=== PATIENT | male | born 1955 | race Caucasian/White ===

== ENCOUNTER 2019-02-12 13:40 | Emergency (ER) | payer OTHER ==
[2019-02-12 14:36] LABS: BASOPHILS % (AUTO) 0.4 % (0.0-5.0); EOSINOPHILS % (AUTO) 0.6 % (0.0-8.0); HEMATOCRIT 45.4 % (42-54); MEAN CORPUSCULAR HEMOGLOBIN 31.3 pg (27.0-33.0); MEAN CORPUSCULAR HGB CONC 35.1 g/dL (32.0-36.0); MEAN CORPUSCULAR VOLUME 89.4 fL (79-99); MONOCYTES % (AUTO) 7.2 % (3.0-13.0); NEUTROPHILS % (AUTO) 72.8 % (40.0-77.0); NUCLEATED RED BLOOD CELLS 0.1 % (0.0-0.19); PLATELET COUNT (AUTO) 207 K/uL (130-400); RED BLOOD CELL COUNT(AUTO) 5.08 MIL/uL (4.50-6.20); RED CELL DISTRIBUTION WIDTH 13.8 % (11.0-15.5); WHITE BLOOD COUNT (AUTO) 11.7 K/uL (4.8-10.8)
[2019-02-12 14:48] LABS: CREATININE 0.6 mg/dL (0.5-1.5); POTASSIUM 3.8 mmol/L (3.5-5.1)
[2019-02-12 14:51] LABS: INR 1.01 (0.85-1.15); PARTIAL THROMBOPLASTIN TIME 24.6 SEC (26.3-35.5); PROTHROMBIN TIME 10.6 SEC (9.6-11.6)
[2019-02-12] MEDS ORDERED: KETOROLAC TROMETHAMINE 30MG/ML ONE (16:00)
[2019-02-12] MEDS ORDERED: DIAZEPAM 5 MG TABLET ONE (16:00)
== END 2019-02-12 17:11 | disposition home or self-care (01) ==
LOC: EDH 13:40
DX: S70.01XA Contusion of right hip, initial encounter (principal); F41.9 Anxiety disorder, unspecified; F32.9 Major depressive disorder, single episode, unspecified; F10.10 Alcohol abuse, uncomplicated; F19.10 Other psychoactive substance abuse, uncomplicated; Z79.899 Other long term (current) drug therapy; Z98.890 Other specified postprocedural states; W18.39XA Other fall on same level, initial encounter; Y93.89 Activity, other specified; Y92.098 Other place in other non-institutional residence as the place of occurrence of the external cause; Y99.8 Other external cause status
CPT/HCPCS: 36415; 70450; 74176; 80048; 84484; 85025; 85610; 85730; 93005; 96374; 99285; J1885

== ENCOUNTER 2019-03-11 10:25 | Inpatient (IN) | payer OTHER | END 2019-03-14 17:43 | disposition home or self-care (01) | LOC: EDH 10:25 → EDHIP 16:25 → 4BH 22:36 | DX: A41.50 Gram-negative sepsis, unspecified (principal); N39.0 Urinary tract infection, site not specified; K57.92 Diverticulitis of intestine, part unspecified, without perforation or abscess without bleeding; B96.4 Proteus (mirabilis) (morganii) as the cause of diseases classified elsewhere ==

== ENCOUNTER 2019-04-01 19:45 | Emergency (ER) | payer OTHER ==
[~2019-04-01 19:45] MED LIST: ALPR1TAB7 PO; HYDR-4068 PO
== END 2019-04-02 00:38 | disposition home or self-care (01) ==
LOC: EDH 19:45
DX: S70.01XA Contusion of right hip, initial encounter (principal); F41.9 Anxiety disorder, unspecified; F10.10 Alcohol abuse, uncomplicated; F14.10 Cocaine abuse, uncomplicated; F19.10 Other psychoactive substance abuse, uncomplicated; F32.9 Major depressive disorder, single episode, unspecified; Z60.9 Problem related to social environment, unspecified; Z87.891 Personal history of nicotine dependence; W01.0XXA Fall on same level from slipping, tripping and stumbling without subsequent striking against object, initial encounter; Y93.89 Activity, other specified; Y92.89 Other specified places as the place of occurrence of the external cause; Y99.8 Other external cause status
CPT/HCPCS: 73502

== ENCOUNTER 2019-06-15 22:29 | Inpatient (IN) | payer OTHER ==
[~2019-06-15] VITALS: Ht 170.2 cm; Wt 98.2 kg
[2019-06-15 23:07] LABS: BASOPHILS % (AUTO) 0.6 % (0.0-5.0); EOSINOPHILS % (AUTO) 0.5 % (0.0-8.0); HEMATOCRIT 44.9 % (42-54); LYMPHOCYTES % (AUTO) 15.7 % (21.0-51.0); MEAN CORPUSCULAR HEMOGLOBIN 30.8 pg (27.0-33.0); MEAN CORPUSCULAR HGB CONC 34.3 g/dL (32.0-36.0); MEAN CORPUSCULAR VOLUME 89.8 fL (79-99); MONOCYTES % (AUTO) 6.8 % (3.0-13.0); NEUTROPHILS % (AUTO) 76.4 % (40.0-77.0); NUCLEATED RED BLOOD CELLS 0.1 % (0.0-0.19); PLATELET COUNT (AUTO) 168 K/uL (130-400); WHITE BLOOD COUNT (AUTO) 10.5 K/uL (4.8-10.8)
[2019-06-15 23:16] LABS: INR 0.98 (0.85-1.15); PARTIAL THROMBOPLASTIN TIME 25.4 SEC (26.3-35.5); PROTHROMBIN TIME 10.3 SEC (9.6-11.6)
[2019-06-15 23:20] LABS: CARBON DIOXIDE 29 mmol/L (21-32); CHLORIDE 106 mmol/L (101-111); CREATININE 0.8 mg/dL (0.5-1.5); GLOMERULAR FILTR. RATE CALC 103 mL/min (>60); GLUCOSE,RANDOM 154 mg/dL (70-105); SODIUM SERUM 144 mmol/L (136-145); UREA NITROGEN, BLOOD 15 mg/dL (7-18)
[2019-06-15 23:23] LABS: ALANINE AMINOTRANSFERASE 25 U/L (12-78); ALBUMIN 3.2 g/dL (3.5-5.0); ALCOHOL, BLOOD < 3 mg/dL (0-10); AMYLASE 32 U/L (25-115); ASPARTATE AMINOTRANSFERASE 37 U/L (10-37); BILIRUBIN,TOTAL 0.4 mg/dL (0.2-1.0); CREATINE KINASE, TOTAL 20 U/L (21-232); LIPASE 71 U/L (114-286); TOTAL PROTEIN, SERUM 7.3 g/dL (6.0-8.3)
[2019-06-15 23:35] LABS: B-TYPE NATRIURETIC PEPTIDE 14 pg/mL (0-100)
[2019-06-16 00:41] LABS: BILIRUBIN,URINE Negative (NEGATIVE); COLOR,URINE Yellow (YELLOW); GLUCOSE, URINE (UA) Negative (NEGATIVE); KETONES,URINE Negative (NEGATIVE); LEUKOCYTE ESTERASE ,URINE Trace (NEGATIVE); NITRATE,URINE Negative (NEGATIVE); OCCULT BLOOD,URINE Large (NEGATIVE); PH,URINE 8.5 (5.0-8.0); PROTEIN,URINE Trace mg/dL (NEGATIVE)
[2019-06-16 00:47] LABS: APPEARANCE,URINE CLOUDY (CLEAR)
[2019-06-16 00:52] LABS: BACTERIA,URINE None Seen /HPF (None Seen); MUCUS,URINE Moderate LPF (None Seen); SQUAMOUS EPITHELIAL CELL,UR Few /HPF (0-2); WBC,URINE 0-1 /HPF (0-1)
[2019-06-16 00:54] LABS: AMORPHOUS SEDIMENT,UR Moderate /LPF (None Seen)
[2019-06-16] MEDS ORDERED: IPRATROPIUM/ALBUTEROL SULFATE 3 ML SOLUTION IH ONE (01:06)
[2019-06-16] MEDS ORDERED: LEVOFLOXACIN 500 MG/D5W 100 ML 100 ML ONE (01:07)
[2019-06-16 01:09] LABS: AMPHET/METH SCREEN,URINE NEGATIVE (NEGATIVE); BARBITURATE SCREEN, URINE NEGATIVE (NEGATIVE); BENZODIAZEPINES SCREEN,URINE POSITIVE (NEGATIVE); CANNABINOID SCREEN,URINE POSITIVE (NEGATIVE); COCAINE SCREEN,URINE POSITIVE (NEGATIVE); OPIATE SCREEN,URINE POSITIVE (NEGATIVE); PHENCYCLIDINE SCREEN,URINE NEGATIVE (NEGATIVE)
[2019-06-16 02:44] VITALS: BP 149/97
[2019-06-16] MEDS ORDERED: ONDANSETRON ODT 4 MG TAB PO PRN (04:30)
[2019-06-16] MEDS ORDERED: FLU VACC QS2019-20 36MOS UP/PF 60 MCG/0.5 ML ML IM ONE (05:00)
[2019-06-16] MEDS ORDERED: PNEUMOCOCCAL VACCINE POLYVALENT 0.5 ML/VIAL [PPV] IM ONE (05:00)
[2019-06-16 05:32] LABS: HEMATOCRIT 45.8 % (42-54); MEAN CORPUSCULAR HEMOGLOBIN 30.4 pg (27.0-33.0); MEAN CORPUSCULAR HGB CONC 33.7 g/dL (32.0-36.0); PLATELET COUNT (AUTO) 181 K/uL (130-400); RED BLOOD CELL COUNT(AUTO) 5.09 MIL/uL (4.50-6.20); RED CELL DISTRIBUTION WIDTH 13.8 % (11.0-15.5); WHITE BLOOD COUNT (AUTO) 11.1 K/uL (4.8-10.8)
[2019-06-16 05:41] LABS: CREATININE 0.8 mg/dL (0.5-1.5); POTASSIUM 4.1 mmol/L (3.5-5.1)
[2019-06-16 08:00] VITALS: BP 160/52
[2019-06-16] MEDS: FAMOTIDINE 20MG TAB 20 MG TAB PO SCH ×2 (10:23→23:05)
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
[2019-06-16] MEDS ORDERED: ALBUTEROL SULFATE 0.083% 2.5 MG/3 ML INH IH ONE (11:17)
[2019-06-16] MEDS ORDERED: IPRATROPIUM 0.5 MG/2.5 ML INH IH ONE (11:25)
[2019-06-16] MEDS: MORPHINE SULFATE 4 MG/1ML SYG IM PRN ×3 (12:37→23:07)
--- NOTE | 2019-06-16 15:45 | NUR ---
SUBSTANCE ABUSE Sw met with pt who admits to long hx of drug use. Pt states that he does smoke THC, "GOd made grass, man made alcohol. Who do you trust"; and takes hydrocodone and Xanax that is prescribed by Dr Coulter. Pt adamant that he has not done cocaine in a long time. Denies any recent use, but states the people that he stays with does. pt states he has been connected with AA for 35 years and knows how it works. Pt denies need for resources or referrals at this time.
[2019-06-16] MEDS: BUDESONIDE 0.5 MG/2 ML INH IH SCH (18:35)
[2019-06-16] MEDS: IPRATROPIUM 0.5 MG/2.5 ML INH IH SCH ×2 (18:35→23:46)
[2019-06-16] MEDS: ALBUTEROL SULFATE 0.083% 2.5 MG/3 ML INH IH SCH ×2 (18:35→23:46)
[2019-06-16 20:20] VITALS: BP 153/91
[2019-06-16] MEDS: INSULIN HUMULIN R 100 UNIT/ML 3ML SQ SCH (21:00)
[2019-06-16] MEDS: METHYLPREDNISOLONE SOD SUCC 40MG/ML 1ML IVP SCH (23:06)
[2019-06-16] MEDS: ALPRAZOLAM 1 MG TAB PO SCH (23:06)
[2019-06-16] MEDS: LEVOFLOXACIN 750 MG/D5W 150 ML 150 ML IV SCH (23:06)
[2019-06-16 23:34] VITALS: BP 138/92
[2019-06-17 04:08] VITALS: BP 157/97
[2019-06-17 04:54] LABS: BASOPHILS % (AUTO) 0.5 % (0.0-5.0); HEMATOCRIT 47.5 % (42-54); LYMPHOCYTES % (AUTO) 7.8 % (21.0-51.0); MEAN CORPUSCULAR HEMOGLOBIN 30.3 pg (27.0-33.0); MEAN CORPUSCULAR HGB CONC 33.5 g/dL (32.0-36.0); MEAN CORPUSCULAR VOLUME 90.4 fL (79-99); MONOCYTES % (AUTO) 0.8 % (3.0-13.0); NEUTROPHILS % (AUTO) 90.9 % (40.0-77.0); PLATELET COUNT (AUTO) 173 K/uL (130-400); RED BLOOD CELL COUNT(AUTO) 5.25 MIL/uL (4.50-6.20); RED CELL DISTRIBUTION WIDTH 13.9 % (11.0-15.5); WHITE BLOOD COUNT (AUTO) 9.7 K/uL (4.8-10.8)
[2019-06-17 05:26] LABS: ALANINE AMINOTRANSFERASE 25 U/L (12-78); ALBUMIN 3.4 g/dL (3.5-5.0); ASPARTATE AMINOTRANSFERASE 27 U/L (10-37); BILIRUBIN,TOTAL 0.7 mg/dL (0.2-1.0); CARBON DIOXIDE 24 mmol/L (21-32); CHLORIDE 103 mmol/L (101-111); CREATININE 0.8 mg/dL (0.5-1.5); GLOMERULAR FILTR. RATE CALC 103 mL/min (>60); GLUCOSE,RANDOM 214 mg/dL (70-105); POTASSIUM 4.2 mmol/L (3.5-5.1); SODIUM SERUM 139 mmol/L (136-145); TOTAL PROTEIN, SERUM 7.8 g/dL (6.0-8.3); UREA NITROGEN, BLOOD 12 mg/dL (7-18)
[2019-06-17] MEDS ORDERED: SODIUM CHLORIDE 3% FOR INHALATION 4 ML/AMP VIAL.NEB IH ONE (06:10)
[2019-06-17] MEDS: ALBUTEROL SULFATE 0.083% 2.5 MG/3 ML INH IH SCH ×4 (06:37→23:00)
[2019-06-17] MEDS: IPRATROPIUM 0.5 MG/2.5 ML INH IH SCH ×4 (06:37→23:00)
[2019-06-17] MEDS: BUDESONIDE 0.5 MG/2 ML INH IH SCH ×2 (06:37→16:38)
[2019-06-17] MEDS: INSULIN HUMULIN R 100 UNIT/ML 3ML SQ SCH ×3 (07:30→21:00)
[2019-06-17 08:00] VITALS: BP_SYST 147; BP_SYST 156; BP_DIAS 74; BP_DIAS 95
[2019-06-17 08:10] LABS: ABG BASE EXCESS -1.6 mmol/L (-2.0-3.0); ABG OXYGEN SATURATION 93.5 % (95.0-99.0); ABG PCO2 39 mmHg (35-48)
[2019-06-17] MEDS: METHYLPREDNISOLONE SOD SUCC 40MG/ML 1ML IVP SCH (09:58)
[2019-06-17] MEDS: FAMOTIDINE 20MG TAB 20 MG TAB PO SCH ×2 (09:59→22:24)
[2019-06-17 11:48] VITALS: BP 145/100
[2019-06-17] MEDS ORDERED: PRED20B PO (13:55)
[2019-06-17] MEDS ORDERED: BUDE0.5A3 IH (13:55)
[2019-06-17] MEDS ORDERED: IPRNEB IH (13:55)
[2019-06-17] MEDS ORDERED: ALBU2.5V2 IH (13:55)
[2019-06-17 16:20] VITALS: BP 156/96
--- NOTE | 2019-06-17 16:39 | NUR ---
CM CALL TO [facility] X2 TO GET ORDER FOR PT EVAL SNF REFERRAL NO ANSWER, FOUND REGULATORY ASSISTANT IN 2A, DSCUSSED PLAN OF CARE; STATES NEEDS RECORDS FROM DR. HAY. CM ADVISED THAT SHE WOULD PLACED ORDER FOR PT, SNF AND MED RECORDS, STATSU DISCUSSED, REGULATORY ASSISTANT STATES COULD CHANGE TO INP. ORDERS PLACED, EXCEPT STATUS CHANGE NOTES ORDER PLACED BY REGULATORY ASSISTANT FOR [facility]. WILL TALK TO PATIENT- [facility]ER[facility] OFFICE, REQUESTING LAST OFFICE VISIT TO FIND OUT PLAN FOR PATIENT. ON HOLD
--- NOTE | 2019-06-17 17:30 | NUR ---
SENT REFERRAL TO [facility], WILL EXPECT THIS PLACMENT TO REQUIRE MORE TIME
[2019-06-17] MEDS: MORPHINE SULFATE 4 MG/1ML SYG IM PRN (18:52)
[2019-06-17 20:50] VITALS: BP 156/70
[2019-06-17] MEDS: ALPRAZOLAM 1 MG TAB PO SCH (22:24)
[2019-06-17 23:19] VITALS: BP 138/92
[2019-06-18] MEDS: LEVOFLOXACIN 750 MG/D5W 150 ML 150 ML IV SCH (00:47)
[2019-06-18 03:26] VITALS: BP 151/100
[2019-06-18] MEDS: ALBUTEROL SULFATE 0.083% 2.5 MG/3 ML INH IH SCH (06:47)
[2019-06-18] MEDS: BUDESONIDE 0.5 MG/2 ML INH IH SCH ×2 (06:47→18:00)
[2019-06-18] MEDS: IPRATROPIUM 0.5 MG/2.5 ML INH IH SCH ×4 (06:47→23:29)
[2019-06-18] MEDS: INSULIN HUMULIN R 100 UNIT/ML 3ML SQ SCH ×4 (07:30→21:00)
[2019-06-18 08:00] VITALS: BP 153/88
[2019-06-18] MEDS ORDERED: PIPE3.379 IV (10:04)
[2019-06-18] MEDS: FAMOTIDINE 20MG TAB 20 MG TAB PO SCH ×2 (10:10→22:39)
[2019-06-18] MEDS: LISINOPRIL 10 MG TABLET PO SCH (10:11)
[2019-06-18] MEDS: PREDNISONE 20 MG TABLET PO SCH (10:11)
[2019-06-18] MEDS: MORPHINE SULFATE 4 MG/1ML SYG IM PRN (11:07)
--- NOTE | 2019-06-18 11:42 | NUR ---
PICC LINE FOR ABX [facility] [employer] PRODUCER MADE ROUNDS- STATES DR. GUY WANTS PT TO HAVE 10 DAYS OF ZOSYN AT FACILITY ORDER PLACED FOR PICC/PTINR
[2019-06-18 11:57] VITALS: BP_SYST 139; BP_SYST 157; BP_DIAS 106; BP_DIAS 112
--- NOTE | 2019-06-18 12:02 | NUR ---
CONSENT SIGNED FOR PICC LINE PLACEMENT.
[2019-06-18 12:06] LABS: INR 1.01 (0.85-1.15); PROTHROMBIN TIME 10.6 SEC (9.6-11.6)
[2019-06-18 16:00] VITALS: BP 147/98
--- NOTE | 2019-06-18 17:00 | NUR ---
DECLINED BY NICHOLAS, REFERRAL TO [facility] HERE TO SEE PT, SPOKE TO MR PAREDES ABOUT HTE CHANGE IN PLAN. NEW [facility] SENT, ORDER PLACE, WILL DO EMS FORMS IN AM Addendum: 06/18/19 at 1820 by MÓNICA DUNN RN Amended: Links added.
[2019-06-18] MEDS: ACETAMINOPHEN 325 MG TAB PO PRN (18:05)
[2019-06-18 20:00] VITALS: BP 161/108
[2019-06-18] MEDS: ALPRAZOLAM 1 MG TAB PO SCH (22:39)
[2019-06-19 00:03] VITALS: BP 180/99
[2019-06-19] MEDS: LEVOFLOXACIN 750 MG/D5W 150 ML 150 ML IV SCH (00:26)
[2019-06-19] MEDS: MORPHINE SULFATE 4 MG/1ML SYG IM PRN (01:55)
[2019-06-19 04:00] VITALS: BP 160/106
[2019-06-19 04:08] LABS: HEPATITIS A ANTIBODY IGM Negative (Negative); HEPATITIS B CORE IGM Negative (Negative); HEPATITIS Bs ANTIGEN SCREEN P Negative (Negative)
[2019-06-19] MEDS: ACETAMINOPHEN 325 MG TAB PO PRN (06:36)
[2019-06-19] MEDS: INSULIN HUMULIN R 100 UNIT/ML 3ML SQ SCH ×4 (06:39→21:00)
[2019-06-19] MEDS: IPRATROPIUM 0.5 MG/2.5 ML INH IH SCH ×4 (07:11→23:18)
[2019-06-19] MEDS: BUDESONIDE 0.5 MG/2 ML INH IH SCH ×2 (07:25→18:00)
[2019-06-19 08:00] VITALS: BP 158/115
[2019-06-19] MEDS: PREDNISONE 20 MG TABLET PO SCH (09:26)
[2019-06-19] MEDS: FAMOTIDINE 20MG TAB 20 MG TAB PO SCH ×2 (09:27→21:55)
[2019-06-19] MEDS: LISINOPRIL 10 MG TABLET PO SCH ×2 (09:27→12:27)
[2019-06-19 12:00] VITALS: BP 153/105
--- NOTE | 2019-06-19 15:18 | NUR ---
[facility] FOR INPT ORDERS
[2019-06-19 16:00] VITALS: BP 133/97
[2019-06-19] MEDS ORDERED: LISI-613 PO (16:08)
--- NOTE | 2019-06-19 17:15 | NUR ---
SUMMARY OF TODAY'S DISCHARGE CHALLENGES [facility] ADMIN UNWILLING TO TAKE PT 2/2 TO + DRUGS POSSIBLE NOT GOO DISPOSITION; ADMIN ADVISED [facility] JUST BEFORE 5 PM THAT PT WOULD BE ACCEPTED. AND AUTH WAS SUBMITTED. CALL TO [facility] AND RETURNED WITH ORDER REQUEST FOR INPT REQUEST OF DIRECTOR. EXPECT AUTH FROM [facility] TOMORROW. EMS FORM PENDING Addendum: 06/19/19 at 2018 by MÓNICA DUNN RN CM Amended: Links added.
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
[2019-06-19 20:00] VITALS: BP 147/89
[2019-06-19] MEDS: ALPRAZOLAM 1 MG TAB PO SCH (21:55)
[2019-06-20] VITALS: BP 123/79
[2019-06-20] MEDS: LEVOFLOXACIN 750 MG/D5W 150 ML 150 ML IV SCH (00:16)
[2019-06-20] MEDS: MORPHINE SULFATE 4 MG/1ML SYG IM PRN ×2 (03:09→19:06)
[2019-06-20 04:00] VITALS: BP 140/96
[2019-06-20] MEDS: INSULIN HUMULIN R 100 UNIT/ML 3ML SQ SCH ×4 (05:46→21:00)
[2019-06-20 06:11] LABS: CREATININE 0.7 mg/dL (0.5-1.5); POTASSIUM 3.8 mmol/L (3.5-5.1)
[2019-06-20] MEDS: IPRATROPIUM 0.5 MG/2.5 ML INH IH SCH ×4 (06:57→23:14)
[2019-06-20] MEDS: BUDESONIDE 0.5 MG/2 ML INH IH SCH ×2 (07:06→18:00)
[2019-06-20 08:00] VITALS: BP 150/99
[2019-06-20] MEDS: PREDNISONE 20 MG TABLET PO SCH (09:04)
[2019-06-20] MEDS: FAMOTIDINE 20MG TAB 20 MG TAB PO SCH ×2 (09:05→21:10)
[2019-06-20] MEDS: LISINOPRIL 20 MG TABLET PO SCH (09:06)
[2019-06-20] MEDS: ACETAMINOPHEN 325 MG TAB PO PRN (11:14)
[2019-06-20 11:55] VITALS: BP 132/82
[2019-06-20] MEDS: LISINOPRIL 10 MG TABLET PO SCH (12:15)
[2019-06-20 16:00] VITALS: BP 135/93
--- NOTE | 2019-06-20 16:00 | NUR ---
cm note spoke to brittni with [facility] and states they have submitted to insurance for snf, but pending insurance approval.
[2019-06-20 20:00] VITALS: BP 143/92
[2019-06-20] MEDS: ALPRAZOLAM 1 MG TAB PO SCH (21:11)
[2019-06-21] VITALS: BP 134/85
[2019-06-21] MEDS: LEVOFLOXACIN 750 MG/D5W 150 ML 150 ML IV SCH (00:44)
[2019-06-21] MEDS: MORPHINE SULFATE 4 MG/1ML SYG IM PRN ×2 (00:50→14:21)
[2019-06-21 04:00] VITALS: BP 135/83
[2019-06-21] MEDS: BUDESONIDE 0.5 MG/2 ML INH IH SCH (06:00)
[2019-06-21] MEDS: INSULIN HUMULIN R 100 UNIT/ML 3ML SQ SCH ×2 (07:30→11:30)
[2019-06-21 08:00] VITALS: BP 150/98
[2019-06-21] MEDS: FAMOTIDINE 20MG TAB 20 MG TAB PO SCH (09:04)
[2019-06-21] MEDS: LISINOPRIL 20 MG TABLET PO SCH (09:05)
[2019-06-21] MEDS: PREDNISONE 20 MG TABLET PO SCH (09:05)
[2019-06-21] MEDS: IPRATROPIUM 0.5 MG/2.5 ML INH IH SCH (11:11)
[2019-06-21 11:22] VITALS: BP 147/85
--- NOTE | 2019-06-21 12:00 | NUR ---
D/C PLAN CM spoke to Caryn with [facility]. States pt has insurance auth and can transfer today. CM notified nursing of acceptance. Addendum: 06/21/19 at 1446 by JOAQUIN ANNE CM Amended: Links added.
[2019-06-21] MEDS: LISINOPRIL 10 MG TABLET PO SCH (12:11)
--- NOTE | 2019-06-21 15:05 | NUR ---
EMS informed of transfer, pt will be sampler pickup at 1600. Maryjo director of career services nurse to follow up if EMS not here by 1600
[2019-06-21] MEDS ORDERED: PNEUMOCOCCAL VACCINE POLYVALENT 0.5 ML/VIAL [PPV] IM ONE (16:00)
[2019-06-21] MEDS ORDERED: FLU VACC QS2019-20 36MOS UP/PF 60 MCG/0.5 ML ML IM ONE (16:00)
--- NOTE | 2019-06-21 16:30 | NUR ---
PATIENT GIVEN DISCHARGE INSTRUCTIONS AND EDUCATION ON FOLLOW UP APPOINTMENTS WITH ORTHOPEDIC DR DHILLON AND IV ANTIBIOTICS PRESCRIBED FOR HIS PNEUMONIA. PATIENT VERBALIZED UNDERSTANDING OF ALL EDUCATION GIVEN VIA TEACH BACK. NO CONCERNS VOICED. REPORT CALLED TO LEA AYALA AT [facility]. ALL QUESTIONS ANSWERED ACCORDINGLY. NO DISTRESS NOTED UPON DISCHARGE. EMS HERE TO TRANSFER PATIENT.
== END 2019-06-21 16:35 | DRG 190 ==
LOC: EDH 22:29 → OBSVTOIN 06-16 01:10 → EDHIP 06-16 01:10 → 3DH 06-16 02:36
PROVIDERS: ADMIT Internal Medicine Critical Care Medicine; ATTEND Internal Medicine Critical Care Medicine
PROC: 02HV33Z Insertion of Infusion Device into Superior Vena Cava, Percutaneous Approach (ICD-10-PCS; principal; 2019-06-18)
PROC: 3E02340 Introduction of Influenza Vaccine into Muscle, Percutaneous Approach (ICD-10-PCS; 2019-06-21)
PROC: 3E0234Z Introduction of Serum, Toxoid and Vaccine into Muscle, Percutaneous Approach (ICD-10-PCS; 2019-06-21)
DX: J44.0 Chronic obstructive pulmonary disease with (acute) lower respiratory infection (principal); J18.9 Pneumonia, unspecified organism; J44.1 Chronic obstructive pulmonary disease with (acute) exacerbation; B19.20 Unspecified viral hepatitis C without hepatic coma; J84.10 Pulmonary fibrosis, unspecified; F41.9 Anxiety disorder, unspecified; F19.10 Other psychoactive substance abuse, uncomplicated; Z23 Encounter for immunization
CPT/HCPCS: 36415; 36600; 71045; 73502; 80048; 80053; 80074; 80305; 81001; 82150; 82550; 82803; 82948; 83605; 83690; 83735; 83880; 84145; 84484; 85025; 85027; 85610; 85730; 86701; 87040; 87071; 87205; 87390; 90732; 93005; 94640; 94664; 97039; C1894; G0008; G0009; G0378; G0480; J1815; J1956; J2270; J2920

== ENCOUNTER 2020-01-20 10:52 | Emergency (ER) | payer OTHER ==
[~2020-01-20 10:52] MED LIST changes: -ALPR1TAB7 PO; -HYDR-4068 PO; +LISI-613 PO
[2020-01-20 13:10] LABS: BASOPHILS % (AUTO) 0.3 % (0.0-5.0); EOSINOPHILS % (AUTO) 1.8 % (0.0-8.0); LYMPHOCYTES % (AUTO) 34.7 % (21.0-51.0); MEAN CORPUSCULAR HEMOGLOBIN 25.5 pg (27.0-33.0); MEAN CORPUSCULAR HGB CONC 31.1 g/dL (32.0-36.0); NEUTROPHILS % (AUTO) 54.9 % (40.0-77.0); PLATELET COUNT (AUTO) 181 K/uL (130-400); RED BLOOD CELL COUNT(AUTO) 5.61 MIL/uL (4.50-6.20); RED CELL DISTRIBUTION WIDTH 15.9 % (11.0-15.5); WHITE BLOOD COUNT (AUTO) 6.3 K/uL (4.8-10.8)
[2020-01-20 13:26] LABS: CREATININE 0.7 mg/dL (0.5-1.5); POTASSIUM 3.9 mmol/L (3.5-5.1)
[2020-01-20 13:33] LABS: ALBUMIN 3.7 g/dL (3.5-5.0); BILIRUBIN,TOTAL 0.8 mg/dL (0.2-1.0)
[2020-01-20 14:36] LABS: ERYTHROCYTE SEDIMENTATION RATE 2 MM/HR (0-20)
[2020-01-20] MEDS ORDERED: LIDOCAINE 5% TOPICAL PATCH TP ONE (15:21)
== END 2020-01-20 20:18 | disposition home or self-care (01) ==
LOC: EDH 10:52
DX: M13.851 Other specified arthritis, right hip (principal); M25.551 Pain in right hip; B37.89 Other sites of candidiasis; F41.9 Anxiety disorder, unspecified; F32.9 Major depressive disorder, single episode, unspecified
CPT/HCPCS: 36415; 73502; 80053; 85025; 85651

== ENCOUNTER 2022-06-27 15:54 | Emergency (ER) | payer OTHER ==
[~2022-06-27 15:54] MED LIST changes: -LISI-613 PO; +LISI20TA24 PO
[2022-06-27 16:01] VITALS: BP 108/65
[2022-06-27 16:19] LABS: APPEARANCE,URINE CLOUDY (CLEAR); BILIRUBIN,URINE NEGATIVE (NEGATIVE); COLOR,URINE YELLOW (YELLOW); GLUCOSE, URINE (UA) NEGATIVE (NEGATIVE); KETONES,URINE 5 mg/dL (NEGATIVE); LEUKOCYTE ESTERASE ,URINE 500 Leu/uL (NEGATIVE); NITRATE,URINE 1+ (NEGATIVE); OCCULT BLOOD,URINE NEGATIVE (NEGATIVE); PROTEIN,URINE 30 mg/dL (NEGATIVE); UROBILINOGEN,URINE 3 mg/dL (0.2-1.0)
[2022-06-27] MEDS ORDERED: DOXYCYCLINE HYCLATE 100 MG TABLET PO SCH (16:30)
[2022-06-27] MEDS ORDERED: IBUPROFEN 800 MG TAB PO ONE (16:30)
[2022-06-27 16:42] LABS: BACTERIA,URINE MOD /HPF (None Seen); MUCUS,URINE MANY LPF (None Seen); SQUAMOUS EPITHELIAL CELL,UR FEW /HPF (0-2); TRANSITIONAL EPI CELLS,URINE FEW /HPF (None Seen); WBC,URINE TNTC /HPF (0-1)
[2022-06-27] MEDS ORDERED: DOXY100C5 PO (16:55)
[2022-06-27] MEDS ORDERED: NAPR-1180 PO (16:55)
[2022-06-27] MEDS ORDERED: CEFU500T67 PO (16:55)
[2022-06-27] MEDS ORDERED: CEFTRIAXONE 1G VIAL IM ONE (17:00)
== END 2022-06-27 17:11 | disposition home or self-care (01) ==
LOC: EDH 15:54
DX: N39.0 Urinary tract infection, site not specified (principal); N45.1 Epididymitis; E11.9 Type 2 diabetes mellitus without complications; J44.9 Chronic obstructive pulmonary disease, unspecified; Z79.1 Long term (current) use of non-steroidal anti-inflammatories (NSAID); Z86.73 Personal history of transient ischemic attack (TIA), and cerebral infarction without residual deficits
CPT/HCPCS: 99284; 87077; 87088; 87186; 81001; 76870; 96372; J0696

== ENCOUNTER → 2025-01-16 | Outpatient (CLI) | payer OTHER ==
[~2025-01-16] MED LIST changes: +APIX2.5T PO; +ASPI-1197 PO; +ATOR10 PO; +BUME1TAB7 PO; +CYCL5TAB3 PO; +DOCU100C33 PO; +HYDR-4060 PO; +LACT10SO85 PO; -LISI20TA24 PO; +LOSA100T59 PO; +POLY17PO4 PO; +SODI100037 PO; +TERA5CAP4 PO
--- NOTE | 2025-01-16 08:55 | NUR ---
RE: PARACENTESIS IMAGES TAKEN AND REVIEWED BY DR Sophia CLEMONS. NOT ENOUGH FLUID SEEN FOR PROCEDURE TO BE DONE SAFELY. PROCEDURE CANCELLED. PROCEDURE OUTCOME REPORTED PATIENT AND VERBALIZED UNDERSTANDING
--- NOTE | 2025-01-16 09:14 | HMCIMG ---
Ascites SCAN History: Abdominal distention FINDINGS: There is a minimal amount of ascitic fluid. It is not enough for ultrasound-guided paracentesis. IMPRESSION: Minimal ascites, not enough for ultrasound-guided paracentesis.
== END | disposition home or self-care (01) ==
LOC: RAH 08:26
PROVIDERS: ATTEND Hospitalist
DX: K74.60 Unspecified cirrhosis of liver (principal)
CPT/HCPCS: 76705

== ENCOUNTER → 2025-01-27 | Outpatient (CLI) | payer OTHER ==
--- NOTE | 2025-01-27 08:54 | NUR ---
U/S GD PARACENTESIS NOT DONE U/S PERFORMED BY Aiden SHAH RDMS. IMAGES REVIEWED BY DR Sophia CLEMONS. NOT ENOUGH FLUID TO SAFELY PERFORM PROCEDURE. PT INFORMED. DISCHARGE VIA EMS STRETCHER
== END | disposition home or self-care (01) ==
LOC: RAH 08:15
PROVIDERS: ATTEND Hospitalist
DX: K74.69 Other cirrhosis of liver (principal); R18.8 Other ascites
CPT/HCPCS: 76705

== ENCOUNTER 2025-02-20 07:43 | Inpatient (IN) | payer OTHER ==
[~2025-02-20] VITALS: Ht 182.9 cm; Wt 108.9 kg
[2025-02-20] VITALS (50 sets, daily range): BP systolic 78–157; BP diastolic 39–87; PULSE 85–123; RESP 16–35; TEMP 97.8–98.7; O2SAT 97–100
[~2025-02-20 07:43] MED LIST changes: +LEVO750T68 PO
[2025-02-20] MEDS ORDERED: ALBUMIN (HUMAN) 25% 50 ML IV SCH (08:00)
[2025-02-20] MEDS: ALBUMIN (HUMAN) 25% 50 ML IV ONE (08:05)
[2025-02-20] MEDS: 0.9%NACL 1000ML 2,721 ML IV ONE (08:12)
[2025-02-20 08:15] LABS: ABG BASE EXCESS -0.6 mmol/L (-2.0-3.0); ABG HCO3 21.3 mmol/L (21.0-28.0); ABG OXYGEN SATURATION 95.3 % (94.0-98.0); ABG PCO2 29 mmHg (35-48); ABG PH 7.492 (7.350-7.450); PO2, ARTERIAL BG 68.6 mmHg (83.0-108.0); TEMPERATURE, CELSIUS BG 37.0 CELSIUS (35.5-37.0); VENT MODE, BG RA (ROOM AIR)
[2025-02-20 08:22] LABS: CREATININE 2.2 mg/dL (0.5-1.3); GLOMERULAR FILTR. RATE CALC 31.0 mL/min (>90); GLUCOSE,RANDOM 151.0 mg/dL (70-105); SODIUM SERUM 135.0 mmol/L (136-145); UREA NITROGEN, BLOOD 21.0 mg/dL (7-18)
[2025-02-20 08:26] LABS: ASPARTATE AMINOTRANSFERASE 73.0 U/L (10-37); CREATINE KINASE, TOTAL 85.0 U/L (21-232); TOTAL PROTEIN, SERUM 5.4 g/dL (6.0-8.3)
[2025-02-20 08:30] LABS: IMMATURE GRANULOCYTE ABSOLUTE 0.06 K/uL (0-1); NUCLEATED RED BLOOD CELLS 0.0 % (0.0-0.19); PLATELET COUNT (AUTO) 97 K/uL (130-400); RED BLOOD CELL COUNT(AUTO) 2.30 MIL/uL (4.50-6.20); RED CELL DISTRIBUTION WIDTH 17.6 % (11.0-15.5); WHITE BLOOD COUNT (AUTO) 8.7 K/uL (4.8-10.8)
--- NOTE | 2025-02-20 08:52 | EKG ---
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
[2025-02-20] MEDS: NOREPINEPHRIN 4MG/NS 250ML 250 ML IV SCH (09:25)
[2025-02-20 09:36] LABS: APPEARANCE,URINE TURBID (CLEAR); GLUCOSE, URINE (UA) 50 mg/dL (NEGATIVE); LEUKOCYTE ESTERASE ,URINE 500 Leu/uL (NEGATIVE); NITRATE,URINE NEGATIVE (NEGATIVE); OCCULT BLOOD,URINE LARGE (NEGATIVE)
[2025-02-20 09:39] LABS: ADD UA MICROSCOPIC YES
[2025-02-20 09:51] LABS: NON-SQUAMOUS EPITHELIAL CELL 2 /HPF (0-2); SQUAMOUS EPITHELIAL CELL,UR FEW /HPF (0-2); YEAST,URINE HYPHAE RARE /HPF (None Seen)
--- NOTE | 2025-02-20 10:03 | ERN ---
General Chief Complaint: Hypotension Stated Complaint: HYPOTENSION Time Seen by MD: 07:44 History of Present Illness Initial Comments 69-year-old male, multiple medical comorbidities including senior living resident, pulmonary fibrosis, liver disease, brought in by EMS from [facility] for hypotension. Patient was found to have a blood pressure in the 50s systolic by senior living staff today. EMS found the blood pressure 60/30. Patient received 500 cc of normal saline by EMS prior to arrival. Patient denies any complaints at this time. He has a distended abdomen. Chronic Yap catheter in place. He denies any respiratory distress or chest pain. He denies any nausea or vomiting or diarrhea. Allergies: Coded Allergies: No Known Allergies (Unverified Allergy, Unknown, 02/12/19) Home Meds Active Scripts Levofloxacin (Levaquin 750Mg Tabs) 750 Mg Tablet, 1 TAB PO DAILY for 7 Days, #7 TAB 0 Refills Prov:MACIEL GARZA 02/17/25 Hydrocodone/Acetaminophen (Hydrocodon-Acetaminophen 5-325) 5 Mg-325 Mg Tablet, 1 EACH PO Q4HPRN PRN for PAIN for 7 Days, #42 TAB 0 Refills Prov:FREDERICK ANDRADE MD 12/18/24 Reported Medications Cyclobenzaprine HCl (Cyclobenzaprine HCl) 5 Mg Tablet, 1 TAB PO TIDP PRN for muscle spasms for 10 Days, #30 TAB 0 Refills 12/31/24 Aspirin (Aspirin) 81 Mg Tab.chew, 81 MG PO HS, TAB.CHEW 12/31/24 Bumetanide (Bumex) 1 Mg Tab, 2 MG PO AM, TAB 12/31/24 Polyethylene Glycol 3350 (Miralax) 17 Gram Powd.pack, 1 PACKET PO DAILY for constipation for 2 Days, #2 PACKET 0 Refills dissolve in water 12/31/24 Docusate Sodium (Docusate Sodium) 100 Mg Capsule, 1 CAP PO BID for constipation for 7 Days, #14 CAP 0 Refills 12/31/24 Sodium Chloride (Sodium Chloride) 1,000 Mg Tab, 1 TAB PO BID for 30 Days, #60 TAB 0 Refills 12/31/24 Lactulose (Lactulose) 10 Gram/15 Ml Solution, 30 ML PO BID for constipation, #500 ML 0 Refills 12/31/24 Apixaban (Eliquis) 2.5 Mg Tablet, 2.5 MG PO BID, TAB 12/31/24 Terazosin HCl (Terazosin HCl) 5 Mg Capsule, 1 CAP PO HS for 30 Days, #30 CAP 0 Refills 12/12/24 Losartan Potassium (Losartan Potassium) 100 Mg Tablet, 1 TAB PO DAILY for 30 Days, #30 TAB 0 Refills 12/12/24 Atorvastatin Calcium (LIPITOR) 10 Mg Tab, 1 TAB PO HS for 30 Days, #30 TAB 0 Refills 12/12/24 Past Medical History Past Medical History: CVA, Diabetes-Type II, Hepatitis, Other Medical History Other: PULMONARY FIBROSIS, HEPATITIS C, THOMBOCYTOPENIA Past Surgical History: None Surgical History Other: BACK Family History Family History: Negative Social History Social History: Lives with family ROS Dictation CONSTITUTIONAL: Fatigue HEAD/FACE: No signs of trauma. EENT: No eye pain, no blurred vision, no tearing, no double vision, no ear pain, no ear discharge, no nose pain, no nasal congestion, no throat pain, no throat swelling, no mouth pain. RESPIRATORY: No cough, no orthopnea, no SOB, no stridor, no wheezing. CARDIOVASCULAR: No chest pain, no edema, no palpitations, no syncope. GASTROINTESTINAL/ABDOMINAL: No abdominal pain, no constipation, no diarrhea, no nausea, no vomiting. GENITOURINARY: No abnormal discharge, no dysuria, no frequent urination, no hematuria. No complaints of pain in the genitals. MUSCULOSKELETAL: No back pain, no gout, no joint pain, no joint swelling, no muscle pain, no muscle stiffness, no neck pain. INTEGUMENTARY: No change in color, no change in hair/nails, no dryness, no lesion, no lumps, no rash. NEUROLOGICAL/PSYCH: No anxiety, not depressed, no emotional problem, no headache, no numbness, no pre-existing deficit, no history of seizures, no tremors, no weakness. HEMATOLOGIC/LYMPHATIC: Not anemic, no history of blood clots, no apparent bleeding, no bruising, glands not swollen. All Systems Negative, Except as Noted. Physical Exam Physical Exam Dictation VITAL SIGNS: Reviewed. GENERAL APPEARANCE: Alert, oriented x3, moderate distress, frail HEAD AND FACE: Non-traumatic. OROPHARYNX: Mouth normal, teeth no caries, tongue pink. Pharynx clear, no erythema. Tonsils no exudates, no abscesses noted. Dry mucous membranes NECK: Supple, non-tender, no thyromegaly, no masses, no JVD, no bruits. BREAST: Deferred. CHEST: No tenderness, no crepitus, no paradoxical movement, no retractions. LUNGS: Bilateral rhonchus, no wheezing HEART: Regular rate, regular rhythm, no murmur, no gallops. VASCULAR: No peripheral edema. ABDOMEN: Abdominal distention consistent with the ascites RECTAL: Deferred. GENITAL: Deferred. NEUROLOGICAL: Normal speech, gross motor function intact, gross sensory functio n intact. MUSCULOSKELETAL: Neck nontender, full range of motion, back nontender, full range of motion. 1+ pitting edema bilateral legs EXTREMITIES: Nontender, full range of motion. SKIN: Pale LYMPHATICS: Deferred. Results Laboratory and Microbiology Lab and Micro Result Laboratory Tests Test 02/20/25 08:00 02/20/25 08:13 02/20/25 08:20 02/20/25 08:21 White Blood Count 8.7 K/uL (4.8-10.8) Red Blood Count 2.30 MIL/uL (4.50-6.20) L Hemoglobin 7.6 g/dL (14.0-18.0) L Hematocrit 23.6 % (42-54) L Mean Corpuscular Volume 102.6 fL (79-99) H Mean Corpuscular Hemoglobin 33.0 pg (27.0-33.0) Mean Corpuscular Hemoglobin Concent 32.2 g/dL (32.0-36.0) Red Cell Distribution Width 17.6 % (11.0-15.5) H Platelet Count 97 K/uL (130-400) L Mean Platelet Volume 10.2 fL (7.5-10.5) Immature Granulocyte % (Auto) 0.7 % (0-1) Neutrophils (%) (Auto) 73.9 % (40.0-77.0) Lymphocytes (%) (Auto) 15.8 % (21.0-51.0) L Monocytes (%) (Auto) 8.9 % (3.0-13.0) Eosinophils (%) (Auto) 0.5 % (0.0-8.0) Basophils (%) (Auto) 0.2 % (0.0-5.0) Neutrophils # (Auto) 6.5 K/uL (1.8-7.7) Lymphocytes # (Auto) 1.4 K/uL (1.0-4.8) Monocytes # (Auto) 0.8 K/uL (0.1-1.0) Eosinophils # (Auto) 0.04 K/uL (0.00-0.70) Basophils # (Auto) 0.02 K/uL (0.00-0.20) Absolute Immature Granulocyte (auto 0.06 K/uL (0-1) Nucleated Red Blood Cells 0.0 % (0.0-0.19) Sodium Level 135 mmol/L (136-145) L Potassium Level 4.4 mmol/L (3.5-5.1) Chloride Level 101 mmol/L (101-111) Carbon Dioxide Level 26 mmol/L (21-32) Blood Urea Nitrogen 21 mg/dL (7-18) H Creatinine 2.2 mg/dL (0.5-1.3) H Glomerular Filtration Rate Calc 31 mL/min (>90) Random Glucose 151 mg/dL (70-105) H Lactic Acid Level 4.3 mmol/L (0.8-2.5) H Total Calcium 7.4 mg/dL (8.5-10.1) L Total Bilirubin 1.9 mg/dL (0.2-1.0) H Direct Bilirubin 1.0 mg/dL (0.0-0.3) H Aspartate Amino Transf (AST/SGOT) 73 U/L (10-37) H Alanine Aminotransferase (ALT/SGPT) 21 U/L (12-78) Alkaline Phosphatase 102 U/L (50-136) Total Creatine Kinase 85 U/L (21-232) Troponin I High Sensitivity 14 ng/L (4-75) Total Protein 5.4 g/dL (6.0-8.3) L Albumin 1.7 g/dL (3.5-5.0) L Lipase 53 U/L (16-77) Blood Gas Specimen Type Arterial Arterial Blood pH 7.492 (7.350-7.450) Arterial Blood Partial Pressure CO2 29 mmHg (35-48) L Arterial Blood Partial Pressure O2 68.6 mmHg (83.0-108.0) L Arterial Blood HCO3 21.3 mmol/L (21.0-28.0) Arterial Blood Oxygen Saturation 95.3 % (94.0-98.0) Arterial Blood Base Excess -0.6 mmol/L (-2.0-3.0) Blood Gas Temperature 37.0 CELSIUS (35.5-37.0) Blood Gas Vent Mode RA (ROOM AIR) FiO2 21.0 % Blood Gas Specimen Comment LR. B-Type Natriuretic Peptide 33 pg/mL (0-100) Urine Color DARK-ORANGE (YELLOW) Urine Appearance TURBID (CLEAR) Urine pH 5.0 (5.0-8.0) Urine Specific [place] 1.028 (1.001-1.031) Urine Protein 70 mg/dL (NEGATIVE) H Urine Glucose (UA) 50 mg/dL (NEGATIVE) H Urine Ketones NEGATIVE mg/dL (NEGATIVE) Urine Occult Blood LARGE (NEGATIVE) H Urine Nitrate NEGATIVE (NEGATIVE) Urine Bilirubin 0.5 mg/dL (NEGATIVE) H Urine Urobilinogen 3 mg/dL (0.2-1.0) H Urine Leukocyte Esterase 500 Lu/uL (NEGATIVE) H Urine RBC TNTC /HPF (0-1) H Urine WBC TNTC /HPF (0-1) H Urine Squamous Epithelial Cells FEW /HPF (0-2) Urine Non-Squamous Epithelial Cells 2 /HPF (0-2) Urine Bacteria RARE /HPF (None Seen) Urine Hyaline Casts 11-25 /LPF (0-1 /LPF) H Urine Yeast with Hyphae RARE /HPF (None Seen) MDM CC: Hypotension Historian: Patient Comorbidities: Pulmonary fibrosis, diabetes, HIV, hepatitis-C with liver failure, senior living resident Limitations by social determinants of health: None Differential diagnosis: Sepsis, cardiogenic shock, dehydration, hypovolemia, anemia, other Vital signs: Initial blood pressure 71/32, borderline tachycardic pulse 96, afebrile. Oxygen saturation stable at the time, but ABG showed low PaO2 is a placed on 2 L nasal cannula. Blood pressure improved with treatment. EKG (independently interpreted by me): NSR, rate 91, normal axis, early RWP. No STEMI. Low voltage. External chart review: Patient was discharged from this facility on 02/18/2025, discharge note by Dr. Riggs reviewed. Patient was admitted at that time for aspiration pneumonia community-acquired pneumonia, liver cirrhosis with a MELD score of 11, functional decline, edema, urinary retention with a Yap catheter placed. He was discharged to nursing facility. On clinical exam, patient has coarse breath sounds with rhonchi. He has a distended abdomen with tense ascites. He has a Yap catheter with dark urine placed. ENT exam shows dry mucous membranes but is otherwise unremarkable. He has pitting edema to the legs 1+. Labs (independently ordered and interpreted by me): No leukocytosis to be CBC 8.7 no shift. Macrocytic anemia hemoglobin 7.6. Thrombocytopenia 97. ABG 7.4 /29/68/21. Chemistry shows stable electrolytes, creatinine 2.2 BUN at 21 KARIME based on previous labs. Lactic acid 4.3. Liver enzymes all mildly elevated. Troponin stable CK stable. Low total protein and albumin. Urinalysis shows large occult blood, leuk esterase. CXR (independently interpreted by me): Some rotation to the x-ray no obvious cardiomegaly or pleural effusions or focal infiltrates. Initially patient hypotensive, concern for sepsis versus shock. Clearly liver failure on clinical exam. Started on IV fluids and albumin. No clear source of infection although the patient does have a chronic Yap catheter and also has a distended abdomen and coarse breath sounds. Possibly a pneumonia versus SBP versus UTI. Treatment in ED: 30 cc/kg fluid bolus, 25 g albumin, 2 g Rocephin. Norepinephrine drip. On sepsis focused re-evaluation after IV fluids, patient remains hypotensive. Septic shock. Norepinephrine started. Consultation: hospitalist (Robert) for admission to ICU ED Course Orders Procedure Category Date Status Time Cbc With Differential LAB 02/20/25 Complete 07:54 Blood Cult ALVIN 02/20/25 In Process 07:54 Urinalysis Profile LAB 02/20/25 Complete 07:54 Culture Urine ALVIN 02/20/25 In Process 07:54 0.9%Nacl 1000ml (Ns PHA 02/20/25 In Process 1000ml) 08:00 Creatine Kinase, Total LAB 02/20/25 Complete 07:54 Troponin I High LAB 02/20/25 Complete Sensitivity 07:54 Lactic Acid LAB 02/20/25 Complete 07:54 Basic Metabolic Panel LAB 02/20/25 Complete 07:54 Hepatic Function Panel LAB 02/20/25 Complete 07:54 Chest 1vw RAD 02/20/25 Taken 07:54 Lipase LAB 02/20/25 Complete 07:54 Arterial Blood Gas RT 02/20/25 Transmitted 07:54 Albumin (Human) 25% PHA 02/20/25 Complete (Albumin (Human) 25% 08:00 Ceftriaxone 2gm Vial PHA 02/20/25 Complete (Rocephin 2gm Inj) 08:30 Albumin (Human) 25% PHA 02/20/25 Complete (Albumin (Human) 25% 08:30 12 Lead Ekg Tracing- EKG 02/20/25 Complete Technical 08:03 Arterial Blood Gas LAB 02/20/25 Complete 08:13 B-Type Natriuretic LAB 02/20/25 Complete Peptide 08:17 Nurse Driven Yap LAUREN 02/20/25 In Process Removal Pro 08:28 *Nursing CPOE 02/20/25 Transmitted Communication: 08:28 Norepinephrin 4mg/Ns PHA 02/20/25 In Process 250ml (Levophed 4mg 09:30 Current Medications Medications (Trade) Dose Ordered Sig/[place] Route PRN Reason Start Time Stop Time Status Last Admin Dose Admin Albumin Human 50 ml @ 0 mls/hr AD IV 02/20/25 08:00 02/20/25 08:03 DC Albumin Human 50 ml @ 0 mls/hr AD ONCE IV 02/20/25 08:30 02/20/25 08:31 DC 02/20/25 08:05 Ceftriaxone Sodium (Rocephin 2gm Inj) 2 gm ONCE ONCE IVPB 02/20/25 08:30 02/20/25 08:31 DC 02/20/25 08:05 Norepinephrine 250 ml @ 0 mls/hr PROTOCOL IV 02/20/25 09:30 03/22/25 09:29 02/20/25 09:25 Sodium Chloride 2,721 ml @ 907 mls/hr ONCE ONCE IV 02/20/25 08:00 02/20/25 10:59 02/20/25 08:12 Vital Signs Date Time Temp Pulse Resp B/P (MAP) Pulse Ox O2 Delivery O2 Flow Rate FiO2 02/20/25 09:25 73/32 02/20/25 09:07 97 14 73/35 99 Nasal Cannula* 2 28 02/20/25 08:31 88 14 89/33 100 Nasal Cannula* 2 28 02/20/25 08:00 97.7 91 14 71/32 100 Room Air* 0 21 6/20/25 07:44 97.7 96 18 71/32 97 Room Air 0 DX & DISP Disposition: Inpatient Departure Impression: Primary Impression: Septic shock Additional Impressions: Dehydration, Thrombocytopenia, Macrocytic anemia, Ascites, Urinary tract infection, Yap catheter in place on admission, KARIME (acute kidney injury), Hypoalbuminemia, Lactic acidemia Critical Time: 30 minutes (Critical Care Procedure NoteAuthorized and Performed by: meTotal critical care time: Approximately 36 minutesDue to a high probability of clinically significant, life threatening deterioration, the patient required my highest level of preparedness to intervene emergently and I personally spent this critical care time directly and personally managing the patient. This critical care time included obtaining a history; examining the pat ient; pulse oximetry; ordering and review of studies; arranging urgent treatment with development of a management plan; evaluation of patient's response to treatment; frequent reassessment; and, discussions with other providers.This critical care time was performed to assess and manage the high probability of imminent, life-threatening deterioration that could result in multi-organ failure. It was exclusive of separately billable procedures and treating other patients and teaching time.Please see MDM section and the rest of the note for further information on patient assessment and treatment.) Condition: Stable Referrals: SELF,REFERRAL (PCP) ANGELY LOPEZ DO Feb 20, 2025 10:03
--- NOTE | 2025-02-20 10:24 | HMCIMG ---
CHEST 1VW HISTORY: Sepsis COMPARISON: 02/13/2025 FINDINGS: A frontal projection of the chest was obtained. No acute pulmonary infiltrates is seen. The heart is borderline enlarged. Degenerative changes are seen. Prominent interstitial markings are seen No evidence of aortic calcification is seen. IMPRESSION: 1. No acute pulmonary infiltrate is seen.
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
[2025-02-20] MEDS ORDERED: [UNRECOGNIZED DRUG - MIXTURE] IV PRN (11:00)
[2025-02-20] MEDS ORDERED: VANCOMYCIN PROTOCOL PER PHARMACY IV SCH (11:00)
[2025-02-20] MEDS: SODIUM CHLORIDE 3% FOR INHALATION 4 ML/AMP VIAL.NEB IH ONE ×3 (11:15→18:54)
[2025-02-20 11:29] LABS: CREATININE 2.0 mg/dL (0.5-1.3); GLOMERULAR FILTR. RATE CALC 35.0 mL/min (>90); GLUCOSE,RANDOM 143.0 mg/dL (70-105); SODIUM SERUM 135.0 mmol/L (136-145); UREA NITROGEN, BLOOD 20.0 mg/dL (7-18)
[2025-02-20 11:31] LABS: INR 1.48 (0.85-1.15)
[2025-02-20 11:42] LABS: RAPID GROUP A STREP negative (NEGATIVE)
--- NOTE | 2025-02-20 11:44 | NUR ---
DCP: PENDING vs REURN TO [facility] Pt was discharged 02/18to [facility] for short term PT, per [place] at [facility]. Sw attempted to reach caregiver Jocelynn Martin [phone], call went straight to voice mail, left message. Please see notes below from previous admission. Patient lives with Caregiver, Jocelynn Martin. He has no home services. Patient has electric wheelchair and shower chair. He needs help with ADLs and doesn't drive. Caregiver assists with transportation. PCP is Dr. Pierre Melo. Pharmacy is [facility] in [place]. Patient voiced no safety concerns regarding returning home and states he has no difficulty with housing or buying food. DCP is home. Addendum: 02/20/25 at 1149 by PRASHANT SANZ Amended: Links added.
[2025-02-20 11:51] LABS: COVID19 (SARS ANTIGEN RAPID) PRESUMPTIVE NEGATIVE (NEGATIVE); INFLUENZA TYPE A Negative For Type A (NEGATIVE)
[2025-02-20 12:00] LABS: INFLUENZA TYPE B Positive For Type B (NEGATIVE)
[2025-02-20] MEDS ORDERED: PHARMACY COMMUNICATION 1 EACH EACH MISC SCH (12:30)
[2025-02-20] MEDS: VANCOMYCIN 1.5 GM/250 ML BAG 250 ML IV ONE (13:02)
--- NOTE | 2025-02-20 13:30 | HMCSR ---
APPROVED REPORT EXAM: Two-dimensional echocardiogram with Doppler and color Doppler. INDICATION ICD: Shock assess 2D Dimensions RVDd3.7 cm Aortic Valve AoV Vmax2.3 m/Queta Peak GR20.5 mmHgLVOT Vmax1.1 m/s AoV VTI0.4 mAo Mean GR10.3 mmHgLVOT VTI0.21 m Mitral Valve MV E Vmax60.6 cm/sDECEL Nhwt654 ms MV A Vmax89.3 cm/sP 1/2 T28 ms E/A ratio0.7MVA (PHT)7.8 cm2 Tricuspid Valve TR Vmax2.1 m/sRAP (EST) 8 juRuPHDK45.0 mmHg TR Peak GR18.0 mmHg Left Ventricle Left ventricular cavity is small. There is normal left ventricular wall thickness. The Ejection Fract ion is >55%. The LV diastolic function was unable to be assessed due to atrial arrhythmia. Right Ventricle The right ventricle is normal size. The right ventricular systolic function is normal. Atria The left atrium size is normal. The right atrium size is normal. Aortic Valve Aortic valve is not well visualized but no significant valvular abnormalities noted. No aortic regurg itation is present. There is no aortic valvular stenosis. Mitral Valve Mitral valve leaflets appear normal. There is no mitral valve regurgitation noted. There is no mitral valve stenosis. Tricuspid Valve The tricuspid valve leaflets appear normal. There is mild tricuspid valve regurgitation noted. RVSP 2 6.0mmHg. Pulmonic Valve Pulmonic valve is not well visualized. Great Vessels IVC is not well visualized but appears normal. Pericardium The pericardium appears normal. Ascites is present. Other Information Quality : Technically difficult challenging study due to body habitus Rhythm : Atrial Fibrillation Conclusion The Ejection Fraction is >55%. The LV diastolic function was unable to be assessed due to atrial arrhythmia. No pericardial effusion Ascites is present.
[2025-02-20] MEDS: OSELTAMIVIR PHOSPHATE 75 MG CAP PO SCH (13:36)
--- NOTE | 2025-02-20 13:50 | HMCIMG ---
US ABDOMINAL RUQ\E\LTD HISTORY: Transaminitis COMPARISON: None TECHNIQUE: Right upper quadrant abdominal ultrasound study was performed. FINDINGS: Liver measures 11 cm there is lobulated and appears less material is seen in the gallbladder. Pancreas is not well seen due to overlying bowel gas. Liver is echogenic consistent with liver parenchymal disease. No gallstone is seen. Common duct measures 4 mm. Gallbladder wall measures 4 mm. Portal vein is patent. Right kidney measures 7.4 x 4.1 x 4.2 cm. No hydronephrosis is seen of the right kidney. IMPRESSION: 1. Sludge material in the gallbladder. No gallstones or ductal dilatation is seen. 2. No hydronephrosis is seen.
--- NOTE | 2025-02-20 15:55 | HMCIMG ---
CT ABDOMEN/PELVIS W/O CONTRAST HISTORY: Complicated cystitis COMPARISON: None TECHNIQUE: Multiple sequential axial images of the abdomen and pelvis were obtained from the dome of the diaphragm through symphysis pubis. Patient was not given contrast through intravenous route. Oral contrast was not given. FINDINGS: No pleural effusion is seen bilaterally. There are right lung subsegmental atelectasis. Superimposed acute infiltrates cannot be excluded. Degenerative changes of the thoracolumbar spine are present. The heart is not enlarged. Cirrhotic changes of the liver are noted. The liver measures 13 cm the spleen is enlarged measuring 17 cm. There may be left hepatic nodule measuring 2.6 cm. Adrenal glands and pancreas are unremarkable. There is no evidence of hydronephrosis bilaterally. No evidence of renal stone is seen. Fecal material is seen in the colon. There are normal size retroperitoneal and mesenteric lymph nodes. There is complex ascites. Atherosclerotic changes are present. Pelvic sidewalls are symmetric bilaterally. The bladder is poorly distended with Yap catheter. If there is clinical suspicion for cystitis, urinalysis correlation may be helpful. Postoperative changes are seen of the right hip causing artifacts limiting evaluation. IMPRESSION: 1. Large complex ascites. Cirrhotic liver and spleen. "Had a nodule measuring 2.8 cm. If there is clinical suspicion for cystitis, urinalysis correlation available. CT was performed with one or more following dose reduction techniques: automated exposure control, adjustment of the mA and kv according to patient's size, or use of a iterative reconstruction technique.
[2025-02-20] MEDS ORDERED: AZITHROMYCIN IVPB (19:54)
[2025-02-20] MEDS ORDERED: BALS60OI4 TP (19:55)
[2025-02-20] MEDS ORDERED: CEFT2VIA12 IVPB (20:01)
[2025-02-20] MEDS ORDERED: SPIR50TA5 PO (20:08)
[2025-02-20] MEDS ORDERED: PANT40TA54 PO (20:08)
[2025-02-20] MEDS ORDERED: ACET-3859 PO (20:08)
[2025-02-20] MEDS ORDERED: TRAM100C2 PO (20:08)
[2025-02-20] MEDS ORDERED: ONDA-104 PO (20:08)
--- NOTE | 2025-02-20 21:29 | NUR ---
Contacted critical care and communicated with Sheryl Feng NP. Informed provider sharad SHERWOOD was held due to patient being NPO. Addendum: 02/20/25 at 2138 by RAH JOHNSON RN RN Provider ordered insertion of ng tube.
--- NOTE | 2025-02-20 23:38 | NUR ---
Patient was found with ng tube pulled out. Patient also took off cpap. Contacted critical care to inform provider of patients condition. Spoke to Sheryl Feng DELIVERY DRIVER/SUPERVISOR. Provider ordered ABG, reinsertion of ng tube, and precedex drip.
[2025-02-21] VITALS (107 sets, daily range): BP systolic 77–149; BP diastolic 34–91; PULSE 61–112; RESP 12–26; TEMP 97.7–98.4; O2SAT 97–100
[2025-02-21] MEDS ORDERED: dexmedeTOMIDine HCL 200mcg/2mL 400 MCG in 0.9%NACL 100ML 96 ML IV PRN
[2025-02-21 00:30] LABS: ABG BASE EXCESS 0.1 mmol/L (-2.0-3.0); ABG HCO3 21.4 mmol/L (21.0-28.0); ABG OXYGEN SATURATION 98.0 % (94.0-98.0); ABG PCO2 27 mmHg (35-48); ABG PH 7.521 (7.350-7.450); CPAP, BG 8 cm H2O; DEVICE COMMENT LB,RN JAMES; PO2, ARTERIAL BG 95.8 mmHg (83.0-108.0); TEMPERATURE, CELSIUS BG 37.0 CELSIUS (35.5-37.0); VENT MODE, BG CPAP,8 (ROOM AIR)
[2025-02-21 05:07] LABS: IMMATURE GRANULOCYTE ABSOLUTE 0.16 K/uL (0-1); NUCLEATED RED BLOOD CELLS 0.0 % (0.0-0.19); PLATELET COUNT (AUTO) 116 K/uL (130-400); RED BLOOD CELL COUNT(AUTO) 2.50 MIL/uL (4.50-6.20); RED CELL DISTRIBUTION WIDTH 17.2 % (11.0-15.5); WHITE BLOOD COUNT (AUTO) 14.4 K/uL (4.8-10.8)
[2025-02-21 05:22] LABS: ASPARTATE AMINOTRANSFERASE 133.0 U/L (10-37); CREATININE 1.6 mg/dL (0.5-1.3); GLOMERULAR FILTR. RATE CALC 46.0 mL/min (>90); GLUCOSE,RANDOM 186.0 mg/dL (70-105); PHOSPHORUS 4.0 mg/dL (2.5-4.9); SODIUM SERUM 134.0 mmol/L (136-145); TOTAL PROTEIN, SERUM 6.0 g/dL (6.0-8.3); UREA NITROGEN, BLOOD 19.0 mg/dL (7-18)
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
--- NOTE | 2025-02-21 11:28 | HMCIMG ---
PORTABLE CHEST RADIOGRAPH INDICATION: picc line placement COMPARISON: 02/20/2025 FINDINGS/IMPRESSION: Tip of left PICC within the SVC. Tip of NG tube within the stomach. Remainder of the study is unchanged.
[2025-02-21] MEDS: VANCOMYCIN 750MG VIAL IVPB SCH (12:55)
[2025-02-21] MEDS: NOREPINEPHRINE 16MG/NS 250ML PREMIX IV SCH (15:08)
[2025-02-22] VITALS (52 sets, daily range): BP systolic 96–153; BP diastolic 28–129; PULSE 61–96; RESP 10–25; TEMP 97.4–98.4; O2SAT 90–98
[2025-02-22 05:32] LABS: IMMATURE GRANULOCYTE ABSOLUTE 0.10 K/uL (0-1); NUCLEATED RED BLOOD CELLS 0.0 % (0.0-0.19); PLATELET COUNT (AUTO) 101 K/uL (130-400); RED BLOOD CELL COUNT(AUTO) 2.51 MIL/uL (4.50-6.20); RED CELL DISTRIBUTION WIDTH 17.0 % (11.0-15.5); WHITE BLOOD COUNT (AUTO) 11.4 K/uL (4.8-10.8)
[2025-02-22 05:49] LABS: CREATININE 1.2 mg/dL (0.5-1.3); GLOMERULAR FILTR. RATE CALC 65.0 mL/min (>90); GLUCOSE,RANDOM 200.0 mg/dL (70-105); SODIUM SERUM 137.0 mmol/L (136-145); UREA NITROGEN, BLOOD 30.0 mg/dL (7-18)
[2025-02-22 05:50] LABS: ASPARTATE AMINOTRANSFERASE 69.0 U/L (10-37); TOTAL PROTEIN, SERUM 5.6 g/dL (6.0-8.3)
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
--- NOTE | 2025-02-22 17:30 | NUR ---
BEDSIDE SWALLOW EVAL COMPLETED. No s/s of aspiration. Recommend small/bite sized solids, thin liquids, and whole meds with liquids. Compensatory strategies 1. Sit upright 2. slow oral intake 3. Alt between solids and liquids SECOND OPERATOR reviewed results and recommendations with patient and nurse Thalia. SECOND OPERATOR educated patient on risk and consequences of aspiration. Speech Therapy not warranted at this time. All questions answered. Addendum: 02/22/25 at 2017 by ZOHRA GRIMALDO Amended: Links added.
--- NOTE | 2025-02-22 18:31 | NUR ---
CB FROM [facility], TA-BENCHMARK TO REPORT SPEECH THERAPY RECOMMENDATION AND IF OKAY TO ADMINISTER 20MG OF LASIX WITH BP OF 103/46 AND REMOVAL OF NGT. PER [facility], DO NOT REMOVE NGT AND WAIT UNTIL AM AND DO NOT ADMINISTER EVENING LASIX.
[2025-02-23] VITALS (42 sets, daily range): BP systolic 87–127; BP diastolic 33–58; PULSE 75–103; RESP 14–20; TEMP 97.4–98.1; O2SAT 95–97
[2025-02-23 06:22] LABS: IMMATURE GRANULOCYTE ABSOLUTE 0.28 K/uL (0-1); NUCLEATED RED BLOOD CELLS 0.0 % (0.0-0.19); PLATELET COUNT (AUTO) 132 K/uL (130-400); RED BLOOD CELL COUNT(AUTO) 2.80 MIL/uL (4.50-6.20); RED CELL DISTRIBUTION WIDTH 16.7 % (11.0-15.5); WHITE BLOOD COUNT (AUTO) 20.9 K/uL (4.8-10.8)
[2025-02-23 06:45] LABS: ASPARTATE AMINOTRANSFERASE 48.0 U/L (10-37); CREATININE 1.6 mg/dL (0.5-1.3); GLOMERULAR FILTR. RATE CALC 46.0 mL/min (>90); GLUCOSE,RANDOM 279.0 mg/dL (70-105); SODIUM SERUM 136.0 mmol/L (136-145); TOTAL PROTEIN, SERUM 5.8 g/dL (6.0-8.3); UREA NITROGEN, BLOOD 39.0 mg/dL (7-18)
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
--- NOTE | 2025-02-23 09:46 | NUR ---
LAB REPORT REPORTEDS TO PRIMARY LACTIC ACID 3,0 AND BNP AT 1728 AT THIS TIME .NO NEW ORDERS
[2025-02-23] MEDS: ENOXAPARIN SODIUM 40 MG/0.4 ML SYRINGE SQ SCH (11:39)
--- NOTE | 2025-02-23 14:40 | NUR ---
[facility] Consult: Patient assessed by wound healing team. See wound assessment. Assessment and recommendations provided to primary nurse. Education provided. Addendum: 02/23/25 at 1601 by LION LANDIN RN RN/ Amended: Links added.
--- NOTE | 2025-02-23 15:00 | HMCIMG ---
CHEST 1VW HISTORY: Hypoxic respiratory failure COMPARISON: 02/21/2025 FINDINGS: A frontal projection of the chest was obtained. There are bilateral pulmonary infiltrates suggestive of pulmonary vascular congestion with possible superimposed pneumonitis. The heart is borderline enlarged. Nasogastric tube is in the distal tip in the plane of the stomach. No evidence of aortic calcification is seen. IMPRESSION: 1. Bilateral pulmonary infiltrates are seen suggestive of pulmonary vascular congestion with possible superimposed pneumonitis.
--- NOTE | 2025-02-23 16:20 | NUR ---
Nutrition consult per TF recs Reviewed labs, notes, and medications. Pt last admin 02/13/25, from SNF, liver cirrhosis w/ ascites, HIV, no s/s of aspiration per [employer] 02/22/25, on Jevity 1.5 @ 50 ml/hr x 24 hrs, IV abx, insulin, lasix, elevatedBUN 39, elevated Cr 1.6, BG 279(H), Ca 7.5 (L), elevated CRP per chart review. NG tube in place, on Jevity 1.5 x 50 ml/hr x 24 hrs + 200Q6H, 0 ml residual, last BM 02/20/25, no ulcer, mild pitting, mild muscle loss, 616 ml balance 02/22/25 per nursing. Observed Jevity 1.5 @ 50 ml/hr, NG tube in place during visit. Start TF rate @ 25 ml/hr for the first 4 hours, increase 5 ml Q2H until you reach goal rate. If residual >500 ml stop TF for 2 hours and then restart if residual continues to be >500 ml stop TF and notify MD Recommendations -Provide Jevity 1.5 @ 60 ml/hr x 22 hrs + 200 Q6H Provides: 1980 kcals, 84 gm pro, 1803 ml per day -If bolus provide: 5 1/2cans of Jevity 1.5 (times: 0900,1400, 1900, 0000, 0400) 30 ml before and after each feed, 1304 ml of formula by EOD -Fluid restriction per MD -Monitor BM -If no BM >3 days consider stool softener -Monitor electrolytes -Replenish electrolytes per protocol -Monitor wts -Reweigh as able -Order Vit D lab to rule out deficiency -Provide MVI QD -Recommend Pt to follow up with PCP -Monitor TF tolerance + need for TF adjustment -Monitor goals of care RD to follow + available for consult per protocol Addendum: 02/23/25 at [address] Amended: Links added.
[2025-02-23] MEDS ORDERED: HONEY 1 APPL/ML TUBE TP SCH (16:30)
--- NOTE | 2025-02-23 18:00 | NUR ---
TRANSFER ORDERS RECEIVED FOR THE ICU PATIENT REPORT CALLED TOP THE ICU CHARGE NURSE ADELITA GONZALEZ.
--- NOTE | 2025-02-23 18:15 | NUR ---
PATIENT TRANSFERRED TO THE ICU VIA BED WITH O2 TO ROOM 207.
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
[2025-02-24] VITALS (51 sets, daily range): BP systolic 89–130; BP diastolic 40–71; PULSE 76–109; RESP 12–44; TEMP 97–98.4; O2SAT 91–100
[2025-02-24 04:40] LABS: IMMATURE GRANULOCYTE ABSOLUTE 0.33 K/uL (0-1); NUCLEATED RED BLOOD CELLS 0.0 % (0.0-0.19); PLATELET COUNT (AUTO) 104 K/uL (130-400); RED BLOOD CELL COUNT(AUTO) 2.80 MIL/uL (4.50-6.20); RED CELL DISTRIBUTION WIDTH 16.5 % (11.0-15.5); WHITE BLOOD COUNT (AUTO) 15.1 K/uL (4.8-10.8)
[2025-02-24 05:07] LABS: ASPARTATE AMINOTRANSFERASE 39.0 U/L (10-37); CREATININE 1.5 mg/dL (0.5-1.3); GLOMERULAR FILTR. RATE CALC 50.0 mL/min (>90); GLUCOSE,RANDOM 215.0 mg/dL (70-105); SODIUM SERUM 137.0 mmol/L (136-145); TOTAL PROTEIN, SERUM 5.9 g/dL (6.0-8.3); UREA NITROGEN, BLOOD 45.0 mg/dL (7-18)
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
[2025-02-24 14:12] LABS: ABSOLUTE CD4 COUNT 607 /uL (359-1519); ABSOLUTE CD8 SUPPRESSOR 90 /uL (109-897); Immature granuloctyes absolute 0.2 x10E3/uL (0.0-0.1); Lymphocytes(Absolute) 2.2 x10E3/uL (0.7-3.1); MCV 98 fL (79-97); PERCENT CD4 CELLS 27.6 % (30.8-58.5); PERCENT CD8 POS. LYMPH. 4.1 % (12.0-35.5)
[2025-02-25] VITALS (31 sets, daily range): BP systolic 97–142; BP diastolic 50–88; PULSE 88–111; RESP 13–27; TEMP 96.6–99.3; O2SAT 93–100
[2025-02-25 04:12] LABS: IMMATURE GRANULOCYTE ABSOLUTE 0.46 K/uL (0-1); NUCLEATED RED BLOOD CELLS 0.2 % (0.0-0.19); PLATELET COUNT (AUTO) 95 K/uL (130-400); RED BLOOD CELL COUNT(AUTO) 2.95 MIL/uL (4.50-6.20); RED CELL DISTRIBUTION WIDTH 16.1 % (11.0-15.5); WHITE BLOOD COUNT (AUTO) 21.0 K/uL (4.8-10.8)
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
--- NOTE | 2025-02-25 22:25 | HMCIMG ---
US VENOUS DOPPLER BILATERAL HISTORY: Right lower extremity swelling COMPARISON: None TECHNIQUE: Bilateral lower extremity venous Doppler ultrasound study was performed. FINDINGS: The study is limited due to patient restlessness The common femoral, femoral, popliteal, and posterior tibial veins are visualized. Normal flow with augmentation and compressibilities are demonstrated. The greater saphenous veins are also seen and grossly patent. IMPRESSION: 1. No evidence of deep venous thrombosis is seen.
[2025-02-26] VITALS (25 sets, daily range): BP systolic 103–150; BP diastolic 64–76; PULSE 90–110; RESP 14–20; TEMP 97.1–97.9; O2SAT 92–99
--- NOTE | 2025-02-26 00:51 | NUR ---
TRANSFER Gave report to Nurse Cat upstairs at 00:15. Transferred patient from 207 to 314 at 00:25 with Oxygen tank, Tele-monitor, and belongings. Patient tolerated transfer.
[2025-02-26 02:53] LABS: IMMATURE GRANULOCYTE ABSOLUTE 0.65 K/uL (0-1); NUCLEATED RED BLOOD CELLS 0.1 % (0.0-0.19); PLATELET COUNT (AUTO) 121 K/uL (130-400); RED BLOOD CELL COUNT(AUTO) 2.97 MIL/uL (4.50-6.20); RED CELL DISTRIBUTION WIDTH 16.4 % (11.0-15.5); WHITE BLOOD COUNT (AUTO) 23.2 K/uL (4.8-10.8)
[2025-02-26 03:03] LABS: CREATININE 1.6 mg/dL (0.5-1.3); GLOMERULAR FILTR. RATE CALC 46.0 mL/min (>90); GLUCOSE,RANDOM 253.0 mg/dL (70-105); SODIUM SERUM 140.0 mmol/L (136-145); UREA NITROGEN, BLOOD 58.0 mg/dL (7-18)
[2025-02-26] MEDS: diazePAM 5 MG TAB PO PRN (03:06)
--- NOTE | 2025-02-26 04:30 | NUR ---
status update pt with anxiety worsening despite valium given per ngt,unable to settle ,uncooperative,repositioned several occasions for comfort. ngt feeding stopped at this time for concerns of aspiration . ronan cheney informed of pt status, including updated labs, received orders to hold feedings for now, initiate lactulose q6 hours per ngt, do cta/p without contrast. Addendum: 02/26/25 at 0501 by DARYL MAYO RN RN Amended: Links added.
[2025-02-26] MEDS: LACTULOSE 20 GM/30 ML UDCUP ONE (05:06)
[2025-02-26] MEDS: LACTULOSE 20 GM/30 ML UDCUP PO ONE (06:19)
--- NOTE | 2025-02-26 08:33 | HMCIMG ---
CT ABDOMEN/PELVIS W/O CONTRAST HISTORY: Abdominal distention COMPARISON: None TECHNIQUE: Multiple sequential axial images of the abdomen and pelvis were obtained from the dome of the diaphragm through symphysis pubis. Patient was not given contrast through intravenous route. Oral contrast was not given. FINDINGS: No pleural effusion is seen bilaterally. There are mild bilateral groundglass pulmonary infiltrates. There is subsegmental atelectasis changes are seen. Degenerative changes of the thoracolumbar spine are present. The heart is not enlarged. Liver measured 12.5 cm. Spleen measured 14 cm. Nasogastric tube is seen. There are abdominal varices. Spleen, adrenal glands and pancreas are unremarkable. There is no evidence of hydronephrosis bilaterally. No evidence of renal stone is seen. Fecal material is seen in the colon. There are normal size retroperitoneal and mesenteric lymph nodes. There is ascites. Atherosclerotic changes are present. Pelvic sidewalls are symmetric bilaterally . There is right hip prosthesis causing artifacts limiting evaluation.. Bladder is well distended without wall thickening. IMPRESSION: 1. Ascites. Cirrhotic liver. Enlarged spleen. Abdominal varices. Bilateral groundglass pulmonary infiltrates. CT was performed with one or more following dose reduction techniques: automated exposure control, adjustment of the mA and kv according to patient's size, or use of a iterative reconstruction technique.
--- NOTE | 2025-02-26 09:00 | HMCIMG ---
CHEST 1VW HISTORY: Pneumonia COMPARISON: 02/23/2025 FINDINGS: A frontal projection of the chest was obtained. There are bilateral pulmonary infiltrates suggestive of pulmonary vascular congestion with possible superimposed pneumonitis. The heart is borderline enlarged. All the lines and tubes are again seen in place. No evidence of aortic calcification is seen. IMPRESSION: 1. Bilateral pulmonary infiltrates are seen suggestive of pulmonary vascular congestion with possible superimposed pneumonitis. Interval worsening is seen.
--- NOTE | 2025-02-26 09:45 | NUR ---
U/S GD PARACENTESIS PROCEDURE PERFORMED BY DR ABRAHAM. PUNCTURE SITE RLQ AND PATIENT TOLERATED PROCEDURE WELL. TOTAL REMOVED 3.5 LITERS OF YELLOW CLOUDY ASCITES FLUID. END OF PROCEDURE AT 0935. PT CONFUSED AND UNCOOPERATIVE AND MOVING IN BED. CATHETER PULLED OUT BY PT. AND DRESSING APPLIED. NO BLEEDING NOTED. REPORT GIVEN TO LISA PAULINO AND PATIENT TRANSPORTED TO [facility] VIA BED WITH SITTER. PT ALERT AND RESPONSIVE.
--- NOTE | 2025-02-26 10:32 | HMCIMG ---
US ABDOMINAL PARACENTESIS IR HISTORY: Right lower extremity swelling COMPARISON: None TECHNIQUE: Informed consent was obtained. Risks and benefits were explained to the patient. A timeout was performed. Patient was prepped and draped in a sterile fashion. Local anesthetics was given as required. Under ultrasound guidance, ascites fluid was localized. Paracentesis was performed. 3.5 L of yellowish fluid was aspirated. FINDINGS: Less than 2 cc blood loss is noted. Patient tolerated procedure without complication. Patient left the department in good condition. IMPRESSION: 1. Uncomplicated ultrasound guidance paracentesis.
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
--- NOTE | 2025-02-26 13:51 | NUR ---
SPEECH NOTE Orders to re-evaluate patient received. At bedside, patient not at baseline and with NG tube in place. Recommend MBSS for tomorrow to allow patient one more day to improve status. Continue with tube feedings until MBSS. All questions answered. Addendum: 02/26/[address] RE RICHARDS Amended: Links added.
--- NOTE | 2025-02-26 14:53 | HMCIMG ---
ABD 1VW HISTORY: Abdominal distention COMPARISON: None FINDINGS: A frontal projection of the abdomen was obtained. Right hip prosthesis is seen. Mild small bowel dilatation seen. Fecal material is seen in the colon. Degenerative changes of the thoracolumbar spine are noted. IMPRESSION: 1. Mild small bowel dilatation is seen.
[2025-02-26] MEDS: VANCOMYCIN 750MG VIAL IVPB SCH (16:08)
--- NOTE | 2025-02-26 16:16 | NUR ---
Discharge Update: S/P P2P at [facility]. Pt. was denied by insurance. Pending expedited appeal. Ale Villareal notified and is in agreement.
--- NOTE | 2025-02-26 18:29 | NUR ---
Nutrition f/u Reviewed labs, notes, and medications. Pt with insulin, IV abx, diuretics, miralax, iv fluids, BG 239(H), elevated BUN 45, elevated Cr 1.5, on Jevity 1.5 @ 50 ml/hr x 22 hrs per chart review. 1305 ml balance 02/25/25, no ulcers, 0 ml residual, wt via bed scale, wt via bed scale, NGT in place, mild pitting, last BM 02/20/25 per nursing. Consider a transition to Glucerna due to BG levels elevated. New formula at recommended rate to meet Pt's needs. Start TF rate @ 25 ml/hr for the first 4 hours, increase 5 ml Q2H until you reach goal rate. If residual >500 ml stop TF for 2 hours and then restart if residual continues to be >500 ml stop TF and notify MD Recommendations -Provide Glucerna 1.5 @ 60 ml/hr x 22 hrs + 200 Q6H Provides: 1980 kcals, 109 gm pro, 1803 ml per day -If bolus provide: 5 1/2cans of Glucerna 1.5 (times: 0900,1400, 1900, 0000, 0400) 30 ml before and after each feed, 1304 ml of formula by EOD -Fluid restriction per MD -Monitor BM -If no BM >3 days consider stool softener -Monitor electrolytes -Replenish electrolytes per protocol -Monitor wts -Reweigh as able -Order Vit D lab to rule out deficiency -Provide MVI QD -Recommend Pt to follow up with PCP -Monitor TF tolerance + need for TF adjustment -Monitor goals of care RD to follow + available for consult per protocol Addendum: 02/26/25 at [address] Amended: Links added.
[2025-02-27] VITALS (15 sets, daily range): BP systolic 102–120; BP diastolic 42–65; PULSE 76–104; RESP 18–23; TEMP 97.5–98; O2SAT 95–97
[2025-02-27 03:24] LABS: IMMATURE GRANULOCYTE ABSOLUTE 0.58 K/uL (0-1); NUCLEATED RED BLOOD CELLS 0.2 % (0.0-0.19); PLATELET COUNT (AUTO) 85 K/uL (130-400); RED BLOOD CELL COUNT(AUTO) 2.76 MIL/uL (4.50-6.20); RED CELL DISTRIBUTION WIDTH 16.9 % (11.0-15.5); WHITE BLOOD COUNT (AUTO) 17.2 K/uL (4.8-10.8)
[2025-02-27 03:36] LABS: ASPARTATE AMINOTRANSFERASE 31.0 U/L (10-37); CREATININE 1.3 mg/dL (0.5-1.3); GLOMERULAR FILTR. RATE CALC 59.0 mL/min (>90); GLUCOSE,RANDOM 162.0 mg/dL (70-105); SODIUM SERUM 143.0 mmol/L (136-145); TOTAL PROTEIN, SERUM 5.4 g/dL (6.0-8.3); UREA NITROGEN, BLOOD 55.0 mg/dL (7-18)
[2025-02-27] MEDS: LACTULOSE 20 GM/30 ML UDCUP PO SCH (06:03)
[2025-02-27] MEDS ORDERED: LACTULOSE 20 GM/30 ML UDCUP PO SCH (09:00)
--- NOTE | 2025-02-27 13:30 | NUR ---
MBSS COMPLETED. SILENT DEV ASPIRATION with thin liquids; deep non-transient penetrations after the swallow with mildly thick liquids with cough response. Recommend pureed solids, moderately thick liquids VIA SPOON, and meds crushed with pureed as tolerated. Compensatory strategies: 1. sit upright during oral intake 2. small and controlled bites 3. slow oral intake 4. liquids via spoon; no cup or straw sips 5. 1:1 supervision during oral intake DIAGNOSTIC FINDINGS: Pt presented with mild to moderate oropharyngeal dysphagia characterized by decreased oral motor strength, ROM, and coordination; decreased tongue base retraction; decreased hyo-laryngeal elevation/excursion and decreased pharyngeal response trigger evidenced by decreased labial closure with anterior spillage; decreased bolus formation and manipulation; tongue pumping; inadequate mastication with poor dentition; premature spillage to valleculae with spillover to pyriform sinuses; residue in oral cavity, body and base of tongue, and within the pharynx partially cleared with extra dry swallows; resulting in non-transient penetration with during the swallow with thin liquids via straw sips with no cough response; deep non-transient penetrations after the swallow with mildly thick liquids with cough response; SILENT DEV ASPIRATION before the swallow with thin liquids via cup sip. NOTE: Patient with NG tube in place and 3LO2 via NC during study. KINDERGARTEN TUTOR reviewed results and recommendations with patient and nurse Malick. KINDERGARTEN TUTOR educated patient on risks and consequences of aspiration. Speech therapy warranted at this time to address mild to moderate oropharyngeal dysphagia. All questions answered. RECOMMENDATIONS: Dysphagia Therapy 1-3X week to increase oral motor strength and pharyngeal swallow: LTG#1: Pt will tolerate least restrictive diet to meet nutrition/hydration with no s/s of aspiration. LTG#2: Skilled education Pt/family/staff STG#1: Pt will participate in laryngeal elevation/excursion exercises with 90% accuracy and min A. STG#2: Pt will participate in tongue base retraction exercises with 90% acc/with Min A. STG#3: Pt will participate in oral motor exercises with 90% acc/with Min A. STG#4: Pt will tolerate modified diet of pureed solids and moderately thick liquids with no overt s/s of aspiration. STG#5: Pt will participate in advanced trials of minced and moist solids with no overt s/s of aspiration. STG#6: Skilled education Pt/family/staff. Addendum: 02/27/[address] Amended: Links added.
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
--- NOTE | 2025-02-27 16:51 | HMCIMG ---
MODIFIED BARIUM SWALLOW W CINE REASON: RECOMMENDED BY SPEECH . COMPARISON: None TECHNIQUE: Modified barium swallow study was performed. FINDINGS: Please see procedure report provided referring speech therapist. IMPRESSION: Modified barium swallow study.
[2025-02-28] VITALS (17 sets, daily range): BP systolic 91–122; BP diastolic 44–71; PULSE 84–109; RESP 15–24; TEMP 97.3–98.1; O2SAT 90–100
[2025-02-28 06:05] LABS: IMMATURE GRANULOCYTE ABSOLUTE 1.11 K/uL (0-1); NUCLEATED RED BLOOD CELLS 0.2 % (0.0-0.19); PLATELET COUNT (AUTO) 99 K/uL (130-400); RED BLOOD CELL COUNT(AUTO) 2.94 MIL/uL (4.50-6.20); RED CELL DISTRIBUTION WIDTH 16.8 % (11.0-15.5); WHITE BLOOD COUNT (AUTO) 27.3 K/uL (4.8-10.8)
[2025-02-28 06:19] LABS: ASPARTATE AMINOTRANSFERASE 43.0 U/L (10-37); CREATININE 1.5 mg/dL (0.5-1.3); GLOMERULAR FILTR. RATE CALC 50.0 mL/min (>90); GLUCOSE,RANDOM 189.0 mg/dL (70-105); SODIUM SERUM 147.0 mmol/L (136-145); TOTAL PROTEIN, SERUM 5.9 g/dL (6.0-8.3); UREA NITROGEN, BLOOD 61.0 mg/dL (7-18)
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
--- NOTE | 2025-02-28 15:19 | HMCIMG ---
EXAM: CR Chest, 1 View. CLINICAL HISTORY: pneumonia COMPARISON: None provided. FINDINGS: Left PICC terminates overlying the SVC. Right lower intercostal drainage tube is present. Elevated right hemidiapraghm. LUNGS: Mild airspace disease within the mid to lower lungs bilaterally (left greater than right). Prominent bilateral vascular markings. PLEURAL SPACES: No pleural effusion or pneumothorax. MEDIASTINUM: Cardiac size and mediastinal contours within normal limits. BONES: No acute osseous abnormality. Old healed right 5th to 7 th ribs fractures. IMPRESSION: 1. Bilateral airspace disease in the mid to lower lungs, left greater than right, possibly representing pneumonia. 2. Left PICC line terminating at SVC. 3. Right intercostal drainage tube. 4. Elevated right hemidiaphragm. /[place]
--- NOTE | 2025-02-28 21:05 | NUR ---
MEDS SHIFT ASSESSMENT DONE, PLEASE REFER TO CHART. PT IS RESPONDING ONLY TO PAINFUL STIMULI AT THIS TIME. DUE MEDS ADMINISTERED, EXCEPT PO MEDS PT IS NOT AWAKE ENOUGH TO SWALLOW. VERIFIED BASELINE WITH SITTER OF NIGHT BEFORE AND FIBROUS PLASTERER WAS INFORMED THAT PT WAS RESPONDING AND SLEPT AT INTERVALS. CHARGE NURSE MADE AWARE AND RE-EVALUATED PT.
--- NOTE | 2025-02-28 22:00 | NUR ---
PAGED PAGED DENSITOMETRIST FOR BIS VIA ANSWERING SERVICE. AWAITING CALL BACK.
--- NOTE | 2025-02-28 22:14 | NUR ---
CALL BACK JACQUELIN KENDALL CALLED BACK AND REFERRED PT'S CONDITION. ORDER FOR HEAD CT RECEIVED. PELON LONG MADE AWARE OF ORDER AND INFORMED THAT CENTERLESS GRINDING MACHINE ADJUSTER AND SITTER WILL BRING PT TO RADIOLOGY.
--- NOTE | 2025-02-28 23:16 | HMCIMG ---
EXAM: CT Head Without IV contrast. CLINICAL HISTORY: LETHARGY TECHNIQUE: Axial computed tomography images of the head/brain without intravenous contrast. COMPARISON: None provided. FINDINGS: BRAIN: No evidence of acute hemorrhage. No mass lesion. No CT evidence for acute territorial infarct. No midline shift or extra-axial collections. VENTRICLES: No hydrocephalus. ORBITS: The orbits are unremarkable. SINUSES AND MASTOIDS: The paranasal sinuses and mastoid air cells are clear. BONES: No fracture. SOFT TISSUES: Unremarkable. IMPRESSION: No acute intracranial abnormality. /[place]
[2025-03-01] VITALS (18 sets, daily range): BP systolic 91–125; BP diastolic 45–73; PULSE 87–105; RESP 17–24; TEMP 97.6–98.1; O2SAT 90–99
--- NOTE | 2025-03-01 00:14 | NUR ---
RESULTS PAGED MANAGER INTRANET CORPORATE ETHICS OFFICER FOR BIS TE REPORT CT RESULTS.MANAGER INTRANET NABI CALLED BACK. REFERRED PT'S CONDITION AND CT HEAD RESULTS. NEW ORDERS RECEIVED, PLEASE REFER TO CPOE. CALLED RT AND LAB FOR BLOOD DRAW.
[2025-03-01 00:30] LABS: ABG BASE EXCESS -1.9 mmol/L (-2.0-3.0); ABG HCO3 21.1 mmol/L (21.0-28.0); ABG OXYGEN SATURATION 94.2 % (94.0-98.0); ABG PCO2 32 mmHg (35-48); ABG PH 7.442 (7.350-7.450); DEVICE COMMENT RR,RN VIVIAN; PO2, ARTERIAL BG 67.1 mmHg (83.0-108.0); TEMPERATURE, CELSIUS BG 37.0 CELSIUS (35.5-37.0); VENT MODE, BG CPAP (ROOM AIR)
[2025-03-01 00:38] LABS: NUCLEATED RED BLOOD CELLS 0.3 % (0.0-0.19); PLATELET COUNT (AUTO) 109.0 K/uL (130-400); RED BLOOD CELL COUNT(AUTO) 3.1 MIL/uL (4.50-6.20); RED CELL DISTRIBUTION WIDTH 17.2 % (11.0-15.5); WHITE BLOOD COUNT (AUTO) 26.4 K/uL (4.8-10.8)
[2025-03-01 00:54] LABS: CREATININE 1.8 mg/dL (0.5-1.3); GLOMERULAR FILTR. RATE CALC 40.0 mL/min (>90); GLUCOSE,RANDOM 225.0 mg/dL (70-105); SODIUM SERUM 144.0 mmol/L (136-145); UREA NITROGEN, BLOOD 68.0 mg/dL (7-18)
--- NOTE | 2025-03-01 00:56 | HMCIMG ---
EXAM: US for Deep Venous Thrombosis, bilateral Lower Extremity. CLINICAL HISTORY: Leg Pain and Swelling TECHNIQUE: Real-time ultrasound scan of the veins of the bilateral lower extremity with color Doppler flow, spectral waveform analysis and compression. COMPARISON: None provided. FINDINGS: technically limited cough, contracted and restless legs. DEEP VEINS: The common femoral, superficial femoral, and popliteal veins are echolucent and compressible. There is normal color Doppler flow throughout. The visualized calf veins appear patent. SOFT TISSUES: No popliteal fossa cyst or other abnormalities. IMPRESSION: 1. No deep venous thrombosis in bilateral lower extremities. /[place]
[2025-03-01 00:57] LABS: ASPARTATE AMINOTRANSFERASE 38.0 U/L (10-37); TOTAL PROTEIN, SERUM 6.2 g/dL (6.0-8.3)
--- NOTE | 2025-03-01 01:31 | NUR ---
RESULTS PAGED MAGNESIUM MILL OPERATOR NABI BACK VIA ANSWERING SERVICE. MAGNESIUM MILL OPERATOR CALLED BACK AND REFERRED LAB RESULTS. NEW ORDERS GIVEN, PLEAS EREFER TO CPOE.
--- NOTE | 2025-03-01 03:54 | NUR ---
CHANGE DRESSING TO PARACENTESIS PUNCTURE SITE IS SATURATED. REMOVED DRESSING AND CLEANSED AREA WITH SALINE. PUNCTURE SITE STILL OOZING. COVERED WITH 4X4 AND ABD PAD THEN SECURED WITH TAPE. RE-POSITIONED PT IN BED WITH HOB ELEVATED. SITTER KEEPING CLOSE WATCH ON PT.
--- NOTE | 2025-03-01 05:20 | NUR ---
MEDS PT STILL CAN ONLY RESPOND TO PAIN STIMULI AND IS NON-VERBAL. DUE MEDS ADMINISTERED, TOLERATED WELL. SCHEDULED PO MEDS UNABLE TO ADMINISTER. KEPT WARM AND DRY. FOR MORE CARE.
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
[2025-03-01] MEDS ORDERED: PHARMACY COMMUNICATION MISC SCH (13:30)
[2025-03-01] MEDS: MEROPENEM 1GM 1 GM VIAL IVPB SCH (13:35)
[2025-03-01 16:07] LABS: HIV 1&2 ANTIBODY Non-Reactive (Negative)
--- NOTE | 2025-03-01 18:21 | HMCIMG ---
EXAM: CT Chest Without IV contrast. CLINICAL HISTORY: pneumonia TECHNIQUE: Axial computed tomography images of the chest without intravenous contrast. COMPARISON: None provided. FINDINGS: LUNGS: Scattered areas of ground-glass opacities with interlobular septal thickening within the bilateral lungs, predominantly within the bilateral upper lobes. There is more consolidated airspace disease within the bilateral lower lobes (right greater than left) that may reflect atelectasis and/or pneumonia. PLEURAL SPACES: No evidence of pneumothorax. No pleural effusion. HEART: No cardiomegaly. No significant pericardial effusion. LYMPH NODES: No significant lymphadenopathy is evident. UPPER ABDOMEN: Cirrhotic hepatic morphology with splenomegaly likely reflecting sequelae of portal venous hypertension, and large volume ascites. Low-attenuation foci within the liver require further characterization with contrast-enhanced CT or MR imaging, the largest of these within the left hepatic lobe measures up to 4.2 x 3.8 cm. BONES: Degenerative changes noted involving visualised spine in the form of marginal osteophytes. Left PICC line terminating at SVC. IMPRESSION: 1. Multifocal pneumonia with consolidation in bilateral lower lobes, right greater than left. 2. Cirrhotic liver with large volume ascites and splenomegaly. 3. 4.2 x 3.8 cm hepatic lesion in left lobe requiring further characterization with contrast-enhanced CT or MRI. /[place]
--- NOTE | 2025-03-01 20:05 | NUR ---
MEDS SHIFT ASSESSMENT DONE, PLEASE REFER TO CHART. DUE MEDS ADMINISTERED, TOLERATED WELL. KEPT RESTED AND COMFORTABLE IN BED WITH HOB ELEVATED. CALL LIGHT WITHIN REACH. SITTER KEEPING CLOSE WATCH ON PT.
[2025-03-02] VITALS (22 sets, daily range): BP systolic 87–109; BP diastolic 44–69; PULSE 96–106; RESP 18–22; TEMP 97.6–98.9; O2SAT 90–99
--- NOTE | 2025-03-02 03:00 | NUR ---
CHANGED PT'S DRESSING TO PARACENTESIS PUNCTURE SITE IS SATURATED AND LINEN IS WET. CHANGED DRESSING, PT'S GOWN AND LINEN. RE-POSITIONED PT ON HIS SIDE WITH HOB ELEVATED. KEPT WARM AND DRY. SITTER KEEPING CLOSE WATCH.
--- NOTE | 2025-03-02 05:05 | NUR ---
MEDS PT HAS NOT SLEPT THE NIGHT. NO COMPLAINTS VERBALIZED. NO DISTRESS NOTED. RE-POSITIONED IN BED WITH HOB ELEVATED. DUE MEDS ADMINISTERED, TOLERATED WELL. FOR MORE CARE.
[2025-03-02 06:08] LABS: CREATININE 2.4 mg/dL (0.5-1.3); GLOMERULAR FILTR. RATE CALC 28.0 mL/min (>90); GLUCOSE,RANDOM 230.0 mg/dL (70-105); SODIUM SERUM 151.0 mmol/L (136-145)
[2025-03-02 06:11] LABS: ASPARTATE AMINOTRANSFERASE 38.0 U/L (10-37); TOTAL PROTEIN, SERUM 5.9 g/dL (6.0-8.3)
[2025-03-02 06:15] LABS: NUCLEATED RED BLOOD CELLS 0.3 % (0.0-0.19); PLATELET COUNT (AUTO) 123 K/uL (130-400); RED BLOOD CELL COUNT(AUTO) 3.13 MIL/uL (4.50-6.20); RED CELL DISTRIBUTION WIDTH 17.6 % (11.0-15.5)
[2025-03-02 06:18] LABS: UREA NITROGEN, BLOOD 79.0 mg/dL (7-18)
[2025-03-02 06:32] LABS: WHITE BLOOD COUNT (AUTO) 38.9 K/uL (4.8-10.8)
[2025-03-02 08:45] LABS: BAND NEUTROPHILS % (MANUAL) 2 % (0-2); LYMPHOCYTES % (MANUAL) 11 % (22-44); MONOCYTES % (MANUAL) 1 % (2-9); PROMYELOCYTES % 1 (0-0); REACTIVE LYMPHOCYTES 2 % (0-0); SEGMENTED NEUTROPHILS % 83 % (40-70)
[2025-03-02 08:46] LABS: MAN.DIFF COMMENT-IMPRESSION MANUAL DIFFERENTIAL
[2025-03-02 08:51] LABS: PLATELET MORPHOLOGY COMMENT SLIGHTLY DECREASED; WBC MORPHOLOGY IMMATURE GRAN 1+
[2025-03-02] MEDS ORDERED: 0.9% NACL 500ML IV.SOLN 500 ML IV SCH ×2 (12:30→16:30)
--- NOTE | 2025-03-02 13:28 | CONS ---
INFECTIOUS DISEASE CONSULTATION DATE OF SERVICE: 03/01/2025 REQUESTING PHYSICIAN: Ale Villareal NP REASON FOR CONSULTATION: on antibiotic management. HISTORY OF PRESENT ILLNESS: A 69-year-old male with history of hepatitis C, liver cirrhosis, diabetes mellitus, and ascites who presented to the emergency room with decreased blood pressure and weakness. The patient was found to have septic shock and was admitted. Urinalysis was positive and urine culture shows mixed hortencia. The patient was found positive for influenza type A. Blood culture shows no growth. The patient was documented as having HIV. I evaluated this patient in December this year. At that time, HIV test was negative. The patient reside at a skilled nursing. No bleeding tendencies. No headache. No dyspnea. No slurred speech. No weakness. PAST MEDICAL HISTORY: * Hepatitis C. * History of IV drug abuse. * Liver cirrhosis. * Diabetes mellitus. * Ascites. PAST SURGICAL HISTORY: * Hip surgery. * Paracentesis. ALLERGIES: No known drug allergies. MEDICATIONS: Include: * Vancomycin. * Penicillin. * Cefepime. * Flagyl. * Insulin. * Tylenol. * Lactulose. SOCIAL HISTORY: He lives at a skilled nursing. No alcohol use or drug use. FAMILY HISTORY: Positive for diabetes mellitus. REVIEW OF SYSTEMS: Greater than 10 systems were reviewed and negative except as documented above. PHYSICAL EXAMINATION: GENERAL: Elderly male, awake. VITAL SIGNS: Temperature 97.9, pulse 101, respirations 20, BP 91/67. EYES: No icterus. Pupils equal and reactive. HENT: No oral thrush seen. Moist oral mucosa. NECK: Supple. No JVD or thyromegaly. LUNGS: Crackles bilaterally. CARDIOVASCULAR: S1 and S2 regular, tachycardic. No murmur heard. ABDOMEN: Distended with ascites, nontender. CENTRAL NERVOUS SYSTEM: Awake, alert, oriented x 3. No focal deficits. SKIN: No rashes or itchiness. LYMPHATIC: No peripheral lymphadenopathy. BACK: No deformity. No pressure ulcer. MUSCULOSKELETAL: No joint swelling, erythema, or tenderness. LABORATORY DATA: Sodium 144, potassium 3.9, BUN 68, creatinine 1.8. WBC 26.4, hemoglobin 10.0, platelets 109. Urinalysis, wbc's too numerous to count. influenza antigen positive for type A. Blood culture no growth for five days. RADIOLOGY: showed bilateral infiltrates, no pleural effusion. ASSESSMENT: A 69-year-old male admitted with low blood pressure and weakness. CURRENT PROBLEMS: Include: * Septic shock. * Pneumonia. * infection. * UTI. * Hypoxia respiratory failure. * Liver cirrhosis and ascites. * Debility. PLAN: * HIV test will be repeated. * Discontinue cefepime. * Discontinue Flagyl. * Start the patient on meropenem. * Continue vancomycin. * The patient has been . * Continue pain management. * Continue . * Monitor electrolytes. * The patient will be followed up closely. Thank you for allowing me to participate in the care of this patient. TID: [id number] RECEIPT: [id number]
[2025-03-02] MEDS ORDERED: 0.9%NACL 1000ML 500 ML IV SCH (13:30)
[2025-03-02] MEDS: ALBUMIN (HUMAN) 25% 50 ML IV SCH (14:34)
[2025-03-02 16:18] LABS: ABG BASE EXCESS -8.1 mmol/L (-2.0-3.0); ABG HCO3 15.3 mmol/L (21.0-28.0); ABG OXYGEN SATURATION 91.1 % (94.0-98.0); ABG PCO2 26 mmHg (35-48); ABG PH 7.395 (7.350-7.450); CARBON MONOXIDE 0.1 % (0.5-1.5); DEVICE COMMENT LR,RUBY-FNP; PO2, ARTERIAL BG 66.9 mmHg (83.0-108.0); TEMPERATURE, CELSIUS BG 37.0 CELSIUS (35.5-37.0); VENT MODE, BG NC (ROOM AIR)
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
[2025-03-02 16:40] LABS: NUCLEATED RED BLOOD CELLS 0.3 % (0.0-0.19); PLATELET COUNT (AUTO) 102.0 K/uL (130-400); RED BLOOD CELL COUNT(AUTO) 3.42 MIL/uL (4.50-6.20); RED CELL DISTRIBUTION WIDTH 18.6 % (11.0-15.5)
[2025-03-02 16:47] LABS: WHITE BLOOD COUNT (AUTO) 36.8 K/uL (4.8-10.8)
[2025-03-02] MEDS: SODIUM BICARB 50MEQ 50ML VIAL IV SCH (16:59)
[2025-03-02] MEDS ORDERED: SODIUM BICARB 8.4% 50ML SYRINGE IV SCH (17:00)
[2025-03-02 17:03] LABS: ASPARTATE AMINOTRANSFERASE 48.0 U/L (10-37); CREATININE 2.8 mg/dL (0.5-1.3); GLOMERULAR FILTR. RATE CALC 24.0 mL/min (>90); GLUCOSE,RANDOM 236.0 mg/dL (70-105); SODIUM SERUM 152.0 mmol/L (136-145); TOTAL PROTEIN, SERUM 7.1 g/dL (6.0-8.3)
[2025-03-02 17:13] LABS: UREA NITROGEN, BLOOD 86.0 mg/dL (7-18)
--- NOTE | 2025-03-02 19:42 | PN ---
INFECTIOUS DISEASE PROGRESS NOTE Date of Service: Mar 02, 2025 SUBJECTIVE: This is a 69-year-old male patient who was seen and examined at bedside in room 314. Patient is awake, alert and able to answer basic questions. During rounding today patient was hypotensive with a BP of 87/44, patient was being bolus with NS and midodrine was administered. We will give albumin 25% x1 dose. Continues on oxygen via nasal cannula at 3 L/min. The WBC is elevated at 38.9 but no fever, temperature is 97.5. Patient was started on Meropenem yesterday and we will continue along with the vancomycin. Patient was updated with the nonreactive HIV testing results. We will continue to monitor patient. PHYSICAL EXAM EYES: Anicteric. Pupils equal and reactive. HENT: No oral thrush seen, moist Oral mucosa NECK: Supple, no JVD or thyromegaly. LUNGS: Good air entry. No rales, no rhonchi. CARDIOVASCULAR: S1, S2 regular. No murmur heard. ABDOMEN: Soft, non tender, bowel sounds present, no organomegaly CENTRAL NERVOUS SYSTEM: Awake, alert, oriented x 3. No focal deficits. SKIN: No rashes, no swelling. LYMPHATICS: No peripheral lymphadenopathy MUSCULOSKELETAL: No joint swelling, erythema or tenderness. EXTREMITIES: No cyanosis or clubbing BACK: No deformity, no pressure ulcer. GENITOURINARY: No dysuria or hematuria Vital Sign (Last 12 Hours) 03/02/25 03/02/25 03/02/25 03/02/25 07:55 08:00 09:30 11:14 Temp 97.5 Pulse 102 Resp 18 21 18 B/P (MAP) 109/69 Pulse Ox 88 90 O2 Delivery N/A Room Air Nasal Cannula Nasal Cannula* N/A Room Air O2 Flow Rate 3.0 3.0 4 3.0 FiO2 32 28 36 32 03/02/25 03/02/25 03/02/25 03/02/25 11:15 12:00 12:58 16:00 Temp 97.5 97.5 Pulse 96 103 99 Resp 20 20 21 B/P (MAP) 87/44 96/53 94/51 Pulse Ox 93 95 O2 Delivery Room Air Room Air O2 Flow Rate 3.0 FiO2 28 21 03/02/25 03/02/25 03/02/25 16:15 18:30 18:31 Pulse 105 Resp 18 18 18 O2 Delivery bipap FiO2 30 30 30 Intake & Output (last 24hrs) 03/01/25 03/01/25 03/02/25 15:00 23:00 07:00 Intake Total 270 ml 712.0 ml 220.0 ml Output Total 200 ml 150 ml Balance 270 ml 512.0 ml 70.0 ml LABS: Laboratory: Test 03/02/25 16:34 03/02/25 16:17 03/02/25 14:56 03/02/25 05:50 Range/Units White Blood Count 36.8 *H 4.8-10.8 K/uL Red Blood Count 3.42 L 4.50-6.20 MIL/uL Hemoglobin 11.1 L 14.0-18.0 g/dL Hematocrit 35.5 L 42-54 % Mean Corpuscular Volume 103.8 H 79-99 fL Mean Corpuscular Hemoglobin 32.5 27.0-33.0 pg Mean Corpuscular Hemoglobin Concent 31.3 L 32.0-36.0 g/dL Red Cell Distribution Width 18.6 H 11.0-15.5 % Platelet Count 102 L 130-400 K/uL Mean Platelet Volume 11.3 H 7.5-10.5 fL Nucleated Red Blood Cells 0.3 H 0.0-0.19 % Sodium Level 152 H 136-145 mmol/L Potassium Level 3.9 3.5-5.1 mmol/L Chloride Level 118 H 101-111 mmol/L Carbon Dioxide Level 21 21-32 mmol/L Blood Urea Nitrogen 86 *H 7-18 mg/dL Creatinine 2.8 H 0.5-1.3 mg/dL Glomerular Filtration Rate Calc 24 >90 mL/min Random Glucose 236 H 70-105 mg/dL Lactic Acid Level 3.8 H 0.8-2.5 mmol/L Total Calcium 8.9 8.5-10.1 mg/dL Total Bilirubin 3.6 #H 0.2-1.0 mg/dL Aspartate Amino Transf (AST/SGOT) 48 H 10-37 U/L Alanine Aminotransferase (ALT/SGPT) 27 # 12-78 U/L Alkaline Phosphatase 130 50-136 U/L Total Protein 7.1 # 6.0-8.3 g/dL Albumin 2.1 #L 3.5-5.0 g/dL Procalcitonin 0.91 H 0.05-0.5 ng/mL Blood Gas Specimen Type Arterial Arterial Blood pH 7.395 7.350-7.450 Arterial Blood Partial Pressure CO2 26 L 35-48 mmHg Arterial Blood Partial Pressure O2 66.9 L 83.0-108.0 mmHg Arterial Blood HCO3 15.3 L 21.0-28.0 mmol/L Arterial Blood Oxygen Saturation 91.1 L 94.0-98.0 % Arterial Blood Base Excess -8.1 L -2.0-3.0 mmol/L Hemoglobin (Blood Gas) 11.1 L 13.5-17.5 g/dL Sodium (Blood Gas) 149 H 136-145 MMOL/L Bedside Potassium (Blood Gas) 3.9 3.4-4.5 MMOL/L Bedside Chloride (Blood Gas) 120 H 98-107 MMOL/L Bedside Glucose (Blood Gas) 213 H 65-95 MG/DL Bedside Ionized Calcium (Blood Gas) 1.20 1.15-1.33 MMOL/L Bedside Lactic Acid (Blood Gas) 4.30 *H 0.36-0.75 MMOL/L Blood Gas Temperature 37.0 35.5-37.0 CELSIUS Blood Gas Flow-by 3.00 0.00-15.00 L/min Blood Gas Vent Mode NC ROOM AIR FiO2 32.0 % Blood Gas Specimen Comment LR,COURTNEY-SPINNER FIXER Whole Blood Glucose 194 H 70-110 MG/DL Bedside Glucose Comment Notified Nurse Segmented Neutrophils % 83 H 40-70 % Band Neutrophils % 2 0-2 % Lymphocytes % (Manual) 11 L 22-44 % Monocytes % (Manual) 1 L 2-9 % Promyelocytes % 1 H 0-0 Differential Comment MANUAL DIFFERENTIAL Reactive Lymphocytes 2 H 0-0 % White Cell Morphology Comment IMMATURE GRAN 1+ Platelet Morphology Comment SLIGHTLY DECREASED Red Blood Cell Morphology MACROCYTIC 1+ Magnesium Level 2.60 H 1.80-2.40 mg/dL Test 03/01/25 15:13 03/01/25 00:33 03/01/25 00:28 Range/Units Vancomycin Level Trough 18.0 10.0-20.0 UG/ML HIV (1&2) Antibody Non-Reactive Negative HIV P24 Antigen, Qualitative Non-Reactive Negative Ammonia 39 H 11-32 umol/L Blood Gas PEEP 5 cm H2O DIAGNOSTICS / RADIOLOGY: PATIENT: RAH PAREDES MR#: [id number] : 1955 SEX: M AGE: 69 LOCATION: 3CH ORDER STATUS: ADM IN REPORT#: [id number] SERVICE 0900 REASON: pneumonia ORDERING PHYSICIAN: COURTNEY OWENS NP PROCEDURE: CHEST WO - CT CHEST W/O CONTRAST EXAM: CT Chest Without IV contrast. CLINICAL HISTORY: pneumonia TECHNIQUE: Axial computed tomography images of the chest without intravenous contrast. COMPARISON: None provided. FINDINGS: LUNGS: Scattered areas of ground-glass opacities with interlobular septal thickening within the bilateral lungs, predominantly within the bilateral upper lobes. There is more consolidated airspace disease within the bilateral lower lobes (right greater than left) that may reflect atelectasis and/or pneumonia. PLEURAL SPACES: No evidence of pneumothorax. No pleural effusion. HEART: No cardiomegaly. No significant pericardial effusion. LYMPH NODES: No significant lymphadenopathy is evident. UPPER ABDOMEN: Cirrhotic hepatic morphology with splenomegaly likely reflecting sequelae of portal venous hypertension, and large volume ascites. Low-attenuation foci within the liver require further characterization with contrast-enhanced CT or MR imaging, the largest of these within the left hepatic lobe measures up to 4.2 x 3.8 cm. BONES: Degenerative changes noted involving visualised spine in the form of marginal osteophytes. Left PICC line terminating at SVC. IMPRESSION: 1. Multifocal pneumonia with consolidation in bilateral lower lobes, right greater than left. 2. Cirrhotic liver with large volume ascites and splenomegaly. 3. 4.2 x 3.8 cm hepatic lesion in left lobe requiring further characterization with contrast-enhanced CT or MRI. /[place] DICTATED BY: MIMI LAMAS Jr., MD DATE: 03/01/251920 ASSESSMENT: Multifocal pneumonia. Urinary tract infection. Septic shock. Leukocytosis. Influenza type B viral infection, s/p treated. Liver cirrhosis and ascites. Hepatitis-C. Thrombocytopenia. Debility. Hypotension. PLAN: Continue Meropenem. Continue vancomycin per pharmacy protocol. We will give albumin 25% x1. Continue GI prophylaxis. Continue bronchodilators. We will monitor electrolytes. Continue with Physical therapy. This case was reviewed and discussed with my supervising physician and the above assessment and plan was formulated and agreed upon. ATTESTATION BY PHYSICIAN I have seen and examined the patient. I reviewed the documentation, medical decision making, and treatment plan as noted by the mid-level provider above. I agree with the findings and plan of care. JAHAIRA CEJA MD, [facility] Mar 02, 2025 19:42
[2025-03-02] MEDS: LACTATED RINGERS 1000ML 1,000 ML IV SCH (20:50)
[2025-03-02] MEDS: ALBUMIN (HUMAN) 5% 250 ML IV SCH (20:51)
[2025-03-02] MEDS: Solu-medROL 40MG VIAL IVP SCH (20:51)
--- NOTE | 2025-03-02 21:34 | NUR ---
TRANSFER OF CARE PT'S LACTIC ACID UP TO 4.5, JULIA RISK ADVISOR CALLED AND ORDER RECEIVED TO GIVE 5% ALBUMIN 500CC IV AND START PT ON LR AT 100 CC/HR. PENDING TRANSFER TO PCCU. RM FINALLY ASSIGNED , REPORT GIVEN TO RICHARD GONZALEZ WHO WILL ASSUME CARE OF PT GOING TO [facility]. PT TRANSFERRED VIA THE BED, DROWSY, SLOW TO RESPOND, ORIENTED X 1. PT WITH THE BIPAP ON AT 12/6, RATE OF 18 AT 30% FIO2.
--- NOTE | 2025-03-02 21:50 | NUR ---
Pt arrived to room 232 from 314.
[2025-03-02 22:54] LABS: ABG BASE EXCESS -3.0 mmol/L (-2.0-3.0); ABG HCO3 20.4 mmol/L (21.0-28.0); ABG OXYGEN SATURATION 97.9 % (94.0-98.0); ABG PCO2 32 mmHg (35-48); ABG PH 7.422 (7.350-7.450); CPAP, BG 12 cm H2O; DEVICE COMMENT RN, NATHAN; PO2, ARTERIAL BG 104.0 mmHg (83.0-108.0); TEMPERATURE, CELSIUS BG 37.0 CELSIUS (35.5-37.0)
[2025-03-03] VITALS (15 sets, daily range): BP systolic 93–133; BP diastolic 51–71; PULSE 61–107; RESP 18–21; TEMP 97.6–98.5; O2SAT 95–99
[2025-03-03] MEDS: DEXTROSE 5%-WATER 1,000 ML IV SCH (00:05)
--- NOTE | 2025-03-03 03:26 | HMCIMG ---
EXAM: CR Chest, 1 view CLINICAL HISTORY: Pneumonia. COMPARISON: CT chest dated 03/01/2025. FINDINGS: Multifocal atelectasis and consolidations in the bilateral lung ayon. No pleural effusion or pneumothorax. The cardiomediastinal silhouette is within normal limits. No acute osseous abnormality. IMPRESSION: Multifocal atelectasis and consolidations in the bilateral lung ayon. The finding is less pronounced on radiographic evaluation, compared to the recent CT dated 03/01/2025. /[place]
[2025-03-03 03:55] LABS: NUCLEATED RED BLOOD CELLS 0.2 % (0.0-0.19); PLATELET COUNT (AUTO) 73.0 K/uL (130-400); RED BLOOD CELL COUNT(AUTO) 3.18 MIL/uL (4.50-6.20); RED CELL DISTRIBUTION WIDTH 18.4 % (11.0-15.5); WHITE BLOOD COUNT (AUTO) 27.9 K/uL (4.8-10.8)
[2025-03-03 04:13] LABS: ASPARTATE AMINOTRANSFERASE 53.0 U/L (10-37); CREATININE 2.6 mg/dL (0.5-1.3); GLOMERULAR FILTR. RATE CALC 26.0 mL/min (>90); GLUCOSE,RANDOM 236.0 mg/dL (70-105); SODIUM SERUM 155.0 mmol/L (136-145); TOTAL PROTEIN, SERUM 6.3 g/dL (6.0-8.3)
[2025-03-03 04:26] LABS: UREA NITROGEN, BLOOD 86.0 mg/dL (7-18)
--- NOTE | 2025-03-03 06:52 | HMCIMG ---
EXAM: CR Chest, 1 view CLINICAL HISTORY: Aspiration. COMPARISON: Chest radiograph dated 03/02/2025. FINDINGS: 1.5 cm nodular opacities in the left lower zone with mild interval decrease in size. The left side PICC tip overlies the distal SVC. No effusion or pneumothorax. Stable cardiac size. No acute osseous abnormality. IMPRESSION: 1.5 cm nodular opacities in the left lower zone with mild interval decrease in size. The remaining lung ayon are clear. /[place]
[2025-03-03 07:31] LABS: ABG BASE EXCESS -0.4 mmol/L (-2.0-3.0); ABG HCO3 22.2 mmol/L (21.0-28.0); ABG OXYGEN SATURATION 96.8 % (94.0-98.0); ABG PCO2 31 mmHg (35-48); ABG PH 7.471 (7.350-7.450); DEVICE COMMENT LR SJ; PO2, ARTERIAL BG 81.8 mmHg (83.0-108.0); TEMPERATURE, CELSIUS BG 37.0 CELSIUS (35.5-37.0); VENT MODE, BG BIPAP 12-6 R18 (ROOM AIR)
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
--- NOTE | 2025-03-03 12:19 | NUR ---
[facility] Follow-up: Patient re-assessed by wound healing team. See wound assessment. Assessment and recommendations provided to primary nurse. Education provided. Addendum: 03/04/25 at 1351 by LION LANDIN RN RN/ Amended: Links added.
--- NOTE | 2025-03-03 12:25 | PN ---
INFECTIOUS DISEASE PROGRESS NOTE Date of Service: Mar 03, 2025 SUBJECTIVE: This is a 69-year-old male patient who was transferred to PCCU due to hypotension Patient has been given midodrine and albumin as well as IV bolus and latest blood pressure is 96/61. Patient's WBC trended down to 27.9 today from 38.9 yesterday. Patient however also continues on Solu-Medrol 40 b.i.d. no fever, temperature IS 97.7. We will continue on Meropenem and vancomycin and continue to monitor patient. Case management working on placement to [employer] [employer]. PHYSICAL EXAM EYES: Anicteric. Pupils equal and reactive. HENT: No oral thrush seen, moist Oral mucosa. NECK: Supple, no JVD or thyromegaly. LUNGS: Good air entry. No rales, no rhonchi. Oxygen support. CARDIOVASCULAR: S1, S2 regular. No murmur heard. ABDOMEN: Soft, non tender, bowel sounds present, no organomegaly. CENTRAL NERVOUS SYSTEM: Awake, alert, oriented x 3. SKIN: No rashes, no swelling. LYMPHATICS: No peripheral lymphadenopathy. MUSCULOSKELETAL: No joint swelling, erythema or tenderness. EXTREMITIES: No cyanosis or clubbing. BACK: No deformity, no pressure ulcer. GENITOURINARY: No dysuria or hematuria. Yap catheter. Vital Sign (Last 12 Hours) 03/03/25 03/03/25 03/03/25 03/03/25 03:31 03:49 07:30 07:33 Pulse 104 101 101 Resp 19 19 20 20 B/P (MAP) 133/71 Pulse Ox 98 O2 Delivery BIPAP FiO2 30 30 03/03/25 03/03/25 03/03/25 03/03/25 08:00 08:43 11:25 11:26 Temp 97.7 Pulse 98 98 94 94 Resp 21 18 18 18 B/P (MAP) 96/61 Pulse Ox 99 O2 Delivery BIPAP N/Cannula Low lpm N/Cannula Low lpm O2 Flow Rate 3.0 3.0 FiO2 32 32 Intake & Output (last 24hrs) 03/02/25 03/02/25 03/03/25 15:00 23:00 07:00 Intake Total 500.0 ml 1500.0 ml Output Total 300 ml Balance 500.0 ml 1200.0 ml LABS: Laboratory: Test 03/03/25 12:13 03/03/25 07:42 03/03/25 07:29 03/03/25 03:25 Range/Units Whole Blood Glucose 198 H 70-110 MG/DL Lactic Acid Level 3.9 H 0.8-2.5 mmol/L Blood Gas Specimen Type Arterial Arterial Blood pH 7.471 H 7.350-7.450 Arterial Blood Partial Pressure CO2 31 L 35-48 mmHg Arterial Blood Partial Pressure O2 81.8 L 83.0-108.0 mmHg Arterial Blood HCO3 22.2 21.0-28.0 mmol/L Arterial Blood Oxygen Saturation 96.8 94.0-98.0 % Arterial Blood Base Excess -0.4 -2.0-3.0 mmol/L Blood Gas Temperature 37.0 35.5-37.0 CELSIUS Blood Gas Respiration Rate 18.0 min. Blood Gas Vent Mode BIPAP 12-6 R18 ROOM AIR FiO2 30.0 % Blood Gas Specimen Comment LR SJ White Blood Count 27.9 H 4.8-10.8 K/uL Red Blood Count 3.18 L 4.50-6.20 MIL/uL Hemoglobin 10.3 L 14.0-18.0 g/dL Hematocrit 34.1 L 42-54 % Mean Corpuscular Volume 107.2 H 79-99 fL Mean Corpuscular Hemoglobin 32.4 27.0-33.0 pg Mean Corpuscular Hemoglobin Concent 30.2 L 32.0-36.0 g/dL Red Cell Distribution Width 18.4 H 11.0-15.5 % Platelet Count 73 #L 130-400 K/uL Mean Platelet Volume 10.8 H 7.5-10.5 fL Nucleated Red Blood Cells 0.2 H 0.0-0.19 % Sodium Level 155 H 136-145 mmol/L Potassium Level 3.8 3.5-5.1 mmol/L Chloride Level 119 H 101-111 mmol/L Carbon Dioxide Level 23 21-32 mmol/L Blood Urea Nitrogen 86 *H 7-18 mg/dL Creatinine 2.6 H 0.5-1.3 mg/dL Glomerular Filtration Rate Calc 26 >90 mL/min Random Glucose 236 H 70-105 mg/dL Total Calcium 8.5 8.5-10.1 mg/dL Magnesium Level 2.70 H 1.80-2.40 mg/dL Total Bilirubin 3.5 H 0.2-1.0 mg/dL Aspartate Amino Transf (AST/SGOT) 53 H 10-37 U/L Alanine Aminotransferase (ALT/SGPT) 32 12-78 U/L Alkaline Phosphatase 111 50-136 U/L Total Protein 6.3 6.0-8.3 g/dL Albumin 2.0 L 3.5-5.0 g/dL Test 03/02/25 22:50 03/02/25 16:34 03/02/25 16:17 03/02/25 14:56 Range/Units Blood Gas PEEP 6 cm H2O Blood Gas CPAP 12 cm H2O Procalcitonin 0.91 H 0.05-0.5 ng/mL Hemoglobin (Blood Gas) 11.1 L 13.5-17.5 g/dL Sodium (Blood Gas) 149 H 136-145 MMOL/L Bedside Potassium (Blood Gas) 3.9 3.4-4.5 MMOL/L Bedside Chloride (Blood Gas) 120 H 98-107 MMOL/L Bedside Glucose (Blood Gas) 213 H 65-95 MG/DL Bedside Ionized Calcium (Blood Gas) 1.20 1.15-1.33 MMOL/L Bedside Lactic Acid (Blood Gas) 4.30 *H 0.36-0.75 MMOL/L Blood Gas Flow-by 3.00 0.00-15.00 L/min Bedside Glucose Comment Notified Nurse Test 03/02/25 05:50 03/01/25 15:13 Range/Units Segmented Neutrophils % 83 H 40-70 % Band Neutrophils % 2 0-2 % Lymphocytes % (Manual) 11 L 22-44 % Monocytes % (Manual) 1 L 2-9 % Promyelocytes % 1 H 0-0 Differential Comment MANUAL DIFFERENTIAL Reactive Lymphocytes 2 H 0-0 % White Cell Morphology Comment IMMATURE GRAN 1+ Platelet Morphology Comment SLIGHTLY DECREASED Red Blood Cell Morphology MACROCYTIC 1+ Vancomycin Level Trough 18.0 10.0-20.0 UG/ML HIV (1&2) Antibody Non-Reactive Negative HIV P24 Antigen, Qualitative Non-Reactive Negative ASSESSMENT: Multifocal pneumonia. Urinary tract infection. Septic shock. Leukocytosis. Influenza type B viral infection, s/p treated. Liver cirrhosis and ascites. Hepatitis-C. Thrombocytopenia. Debility. Hypotension. PLAN: Continue Meropenem. Continue vancomycin per pharmacy protocol. Completed Tamiflu. Continues on albumin. Continue GI prophylaxis. Continue bronchodilators. Continues on IV steroids. We will monitor electrolytes. Continue with Physical therapy. This case was reviewed and discussed with my supervising physician and the above assessment and plan was formulated and agreed upon. ATTESTATION BY PHYSICIAN I have seen and examined the patient. I reviewed the documentation, medical decision making, and treatment plan as noted by the mid-level provider above. I agree with the findings and plan of care. JAHAIRA CEJA MD, [facility] Mar 03, 2025 12:25
--- NOTE | 2025-03-03 13:10 | NUR ---
SPEECH NOTE: Orders to re-evaluate patient received. As per nurse Reymundo Richardson, patient is NPO and needing an MBSS to assess for possible aspiration. REAL ESTATE PHOTOGRAPHER informed nurse that patient has dysphagia as per recent MBSS completed on this admission 02/07/2025 with recommendations for pureed solids, moderately thick liquids VIA SPOON, and meds crushed with pureed. Nurse was unable to report if patient was ever advanced to PO after MBSS. Recommend diet as per MBSS and if any s/s of aspiration arise, make patient NPO and re-consult speech therapy services to re-evaluate with MBSS. All questions answered. Addendum: 03/03/[address] [facility] RICHARDS Amended: Links added.
--- NOTE | 2025-03-03 16:55 | NUR ---
Nutrition f/u Reviewed labs, medications, and notes. Insulin, IV abx, NPO since 03/02/25, D5W @ 75 ml/hr Q13H, on 3L N.C, negative for HIV, PICC line in place per chart review. 852 ml balance 03/02/25, wt via bed scale, last BM 03/02/25, sacrum ulcer, moderate pitting, 100%PO prior to NPO status per nursing. Consider TPN or advance diet when medically feasible to HH + 75 gm cho, texture per SENIOR TRAINING SPECIALIST. Recommendations -Provide if medically feasible consider Clinimix 01/15 via PICC line @ 83.33 ml/hr x 24 hr Provides: 2000 ml, 100 gm protein, 300 gm dextrose -Include 10 ml adult MVI and 3 ml trace elements -Provide 3x weekly lipid emulsion to prevent essential fatty acid deficiency -Fluid restriction per MD -Monitor BM -If no BM >3 days consider stool softener -Monitor electrolytes -Replenish electrolytes per protocol -Monitor wts -Reweigh as able -Provide MVI QD, vit. C 500 mg BID, zinc 220 mg QD to aid in wound healing -Recommend Pt to follow up with PCP -Monitor TF tolerance + need for TF adjustment -Monitor goals of care RD to follow + available for consult per protocol Addendum: 03/03/25 at [address] Amended: Links added.
[2025-03-03] MEDS: BALSAM PERU/CASTOR OIL 60 GM TUBE TP SCH (20:48)
--- NOTE | 2025-03-03 22:06 | NUR ---
GAVE REPORT TO CARLOS AT [facility]
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
[2025-03-04 00:11] VITALS: PULSE 96; RESP 23; O2SAT 99
[2025-03-04 00:29] VITALS: BP 105/49; PULSE 90; RESP 18; TEMP 98.9
--- NOTE | 2025-03-04 03:50 | NUR ---
Pt left with EMS for Marycruz Viramontes. Made sure telemetry pack is removed. Made sure pt had possessions in his possession. Assisted transfer of pt from bed to stretcher. Pt left with EMS in stretcher.
== END 2025-03-04 03:50 | DRG 871 ==
LOC: EDH 07:43 → EDHIP 10:16 → 2CH 12:40 → 3DH 02-22 12:00 → 2BH 02-23 18:34 → 3CH 02-26 00:50 → 2AH 03-02 21:58
PROVIDERS: ADMIT Internal Medicine Critical Care Medicine; ATTEND Internal Medicine Critical Care Medicine
PROC: 5A09357 Assistance with Respiratory Ventilation, Less than 24 Consecutive Hours, Continuous Positive Airway Pressure (ICD-10-PCS; principal; 2025-02-20)
PROC: 5A09357 Assistance with Respiratory Ventilation, Less than 24 Consecutive Hours, Continuous Positive Airway Pressure (ICD-10-PCS; 2025-02-21)
PROC: 02HV33Z Insertion of Infusion Device into Superior Vena Cava, Percutaneous Approach (ICD-10-PCS; 2025-02-21)
PROC: 5A09357 Assistance with Respiratory Ventilation, Less than 24 Consecutive Hours, Continuous Positive Airway Pressure (ICD-10-PCS; 2025-02-22)
PROC: 5A0935A Assistance with Respiratory Ventilation, Less than 24 Consecutive Hours, High Flow/Velocity Cannula (ICD-10-PCS; 2025-02-22)
PROC: 5A0935A Assistance with Respiratory Ventilation, Less than 24 Consecutive Hours, High Flow/Velocity Cannula (ICD-10-PCS; 2025-02-24)
PROC: 5A09357 Assistance with Respiratory Ventilation, Less than 24 Consecutive Hours, Continuous Positive Airway Pressure (ICD-10-PCS; 2025-02-24)
PROC: 5A09357 Assistance with Respiratory Ventilation, Less than 24 Consecutive Hours, Continuous Positive Airway Pressure (ICD-10-PCS; 2025-02-25)
PROC: 5A09357 Assistance with Respiratory Ventilation, Less than 24 Consecutive Hours, Continuous Positive Airway Pressure (ICD-10-PCS; 2025-02-26)
PROC: 0W9G3ZZ Drainage of Peritoneal Cavity, Percutaneous Approach (ICD-10-PCS; 2025-02-26)
PROC: 5A09357 Assistance with Respiratory Ventilation, Less than 24 Consecutive Hours, Continuous Positive Airway Pressure (ICD-10-PCS; 2025-02-28)
PROC: 5A09357 Assistance with Respiratory Ventilation, Less than 24 Consecutive Hours, Continuous Positive Airway Pressure (ICD-10-PCS; 2025-03-01)
PROC: 5A09357 Assistance with Respiratory Ventilation, Less than 24 Consecutive Hours, Continuous Positive Airway Pressure (ICD-10-PCS; 2025-03-02)
PROC: 5A09357 Assistance with Respiratory Ventilation, Less than 24 Consecutive Hours, Continuous Positive Airway Pressure (ICD-10-PCS; 2025-03-03)
PROC: 5A09357 Assistance with Respiratory Ventilation, Less than 24 Consecutive Hours, Continuous Positive Airway Pressure (ICD-10-PCS; 2025-03-04)
DX: A41.9 Sepsis, unspecified organism (principal); E43 Unspecified severe protein-calorie malnutrition; J96.21 Acute and chronic respiratory failure with hypoxia; R65.21 Severe sepsis with septic shock; J10.00 Influenza due to other identified influenza virus with unspecified type of pneumonia; N17.9 Acute kidney failure, unspecified; R18.8 Other ascites; E87.0 Hyperosmolality and hypernatremia; E87.20 Acidosis, unspecified; N39.0 Urinary tract infection, site not specified; B19.20 Unspecified viral hepatitis C without hepatic coma; D69.6 Thrombocytopenia, unspecified; E88.09 Other disorders of plasma-protein metabolism, not elsewhere classified; E83.51 Hypocalcemia; Z20.822 Contact with and (suspected) exposure to COVID-19; D53.9 Nutritional anemia, unspecified; E11.22 Type 2 diabetes mellitus with diabetic chronic kidney disease; E86.0 Dehydration; I13.10 Hypertensive heart and chronic kidney disease without heart failure, with stage 1 through stage 4 chronic kidney disease, or unspecified chronic kidney disease; N18.30 Chronic kidney disease, stage 3 unspecified; J84.10 Pulmonary fibrosis, unspecified; K74.60 Unspecified cirrhosis of liver; Z21 Asymptomatic human immunodeficiency virus [HIV] infection status; Z74.01 Bed confinement status; Z79.899 Other long term (current) drug therapy; Z83.3 Family history of diabetes mellitus; Z86.73 Personal history of transient ischemic attack (TIA), and cerebral infarction without residual deficits; Z68.32 Body mass index [BMI] 32.0-32.9, adult
CPT/HCPCS: 36415; 36569; 36600; 49083; 70450; 71045; 71250; 74018; 74176; 74230; 76705; 80048; 80053; 80076; 80202; 81001; 82140; 82435; 82550; 82803; 82947; 82948; 83605; 83690; 83735; 83880; 84100; 84132; 84145; 84295; 84443; 84484; 85018; 85025; 85027; 85384; 85610; 85730; 86140; 86360; 86701; 87040; 87086; 87390; 87426; 87804; 87880; 92610; 92611; 93005; 93306; 93970; 94640; 94660; 94667; 94668; 99291; C1729; G0378; J0692; J0696; J1650; J1720; J1815; J1885; J1938; J2185; J2470; J2919; J3480; J3490; P9045; P9047; C1751; J3370